=== PATIENT | male | born 1940 | race Caucasian/White ===

== ENCOUNTER → 2016-03-18 | Outpatient (CLI) | payer MEDICARE ==
[2015-05-06 08:00] VITALS: BP 168/88
[~2016-03-18] MED LIST: AMLO10TA2 PO; ASPI325T11 PO; ATOR20TA PO; BENA40TA2 PO; BISO10TA PO; CLOP75TA PO; FLUO10CA7 PO; FLUO40CA9 PO; GEMF600T3 PO; HYDR25TA9 PO; IOHEXOL 180 MG/ML 10 ML VIAL. ONE; LABE200T2 PO; METF10002 PO; METF500T4 PO; SPIR50TA2 PO; methylPREDNISolone ACETATE 40 MG/ML VIAL. ONE; methylPREDNISolone ACETATE 80 MG/ML VIAL. ONE
--- NOTE | 2016-03-19 00:08 | PAIN ---
DATE OF SERVICE: 03/18/2016 DIAGNOSES: Cervical radiculopathy with cervical spinal stenosis and cervical degenerative disk disease. HISTORY OF PRESENT ILLNESS: The patient is a 75-year-old male who returns for followup status post cervical epidural steroid injections x 2. The patient reports good results lasting about one week after the injection and still with about 50% improvement after this, but still significant pain in the base of the neck, bilateral shoulders and upper extremities, more on the left than the right, worse with rotation and motion of the neck to the left as well as forward flexion. The patient reports a constant aching pain, rated as a 5 on a scale of 10. Reports no new motor or sensory deficits or other complaints, but still significant pain, although for the first week or so significant improvement, then ____ off to about 50% improvement at this time. The patient reports no other changes. PHYSICAL EXAMINATION: VITAL SIGNS: The patient's blood pressure is 129/68, pulse 77, respirations 20, temperature 98.1 degrees Fahrenheit. Height is 5 feet 11 inches, weighs 242 pounds. GENERAL: The patient is awake, alert, oriented, appropriate, very pleasant demeanor. HEENT: Head shows normocephalic, atraumatic. Extraocular movements are intact and symmetrical. Oral cavity, mucous membranes are moist and pink. Dentition is intact. NECK: Shows anterior throat supple without palpable lymphadenopathy noted. Swallow reflex is symmetrical. CHEST: Shows normal on inspection. Breath sounds clear to auscultation bilaterally. HEART: Shows S1 and S2 clear. ABDOMEN: Soft, nontender, nondistended. No palpable organomegaly is noted. No rebound or guarding demonstrated. BACK: Shows spine grossly midline. Cervical paraspinous muscle shows some moderate tenderness with palpation in the bilateral cervical paraspinous musculature, mainly in the middle and lower distribution, more firm and tender on the left than the right, but appears symmetrical bilaterally. The patient shows good rotation and motion with some pain reported with left lateral rotation, but without right lateral rotation greater than 45 degrees, also with extension without difficulty. Forward flexion with some moderate pain reported in the left neck and shoulders well. EXTREMITIES: Upper extremities show deep tendon reflexes 1+ in the biceps and triceps tendons. Motor exam is strong with shipping agent strength rated at 5/5 as is biceps and triceps flexion and equal. Peripheral pulses are 2+ radial distribution. No peripheral edema is noted. No clubbing or cyanosis. PLAN: Options were discussed with the patient. Patient's old chart was reviewed as his current medication regimen and updated. Current review of systems updated today as well. We will plan on a third cervical epidural steroid injection today with fluoroscopic guidance. Risks were again discussed including, but not limited to bleeding, infection, possibility of epidural hematoma, subsequent neurologic compromise, dural puncture, headaches, spinal cord and/or nerve damage, side effects of steroid medication and poor results regarding pain control. The patient understands and wishes to proceed. The patient will return to clinic in approximately 2 weeks or as necessary. We also discussed possible physical therapy with traction and massage techniques for the left neck and upper shoulder and traction. He would like to consider this. We will have him contact the office if he decides to proceed with this and make those arrangements. Also given a prescription for hydrocodone at 7.5 mg by his request to take one tablet q. 4-6 hours p.r.n. pain, number dispensed 100 with instructions, side effects to be aware of discussed with the medication as well. DIAGNOSIS: Cervical radiculopathy with cervical spinal stenosis and cervical degenerative disk disease. PROCEDURE: Cervical epidural steroid injection, translaminar approach at the C6-C7 level with fluoroscopic guidance under sterile prep and drape using local anesthetic MEDICATIONS INJECTED: Depo-Medrol 120 mg plus 5 mL of preservative-free normal saline and 2 mL of Isovue contrast. CONDITION AT DISCHARGE: Stable. The patient tolerated the procedure well, had no complications. FLORENTIN BELLE MD DR: MELITA/diaz JOB#: [id number] / [id number]
== END ==
LOC: PNCL 09:23
PROVIDERS: ATTEND Anesthesiology
DX: M50.123 Cervical disc disorder at C6-C7 level with radiculopathy (principal); M48.02 Spinal stenosis, cervical region
CPT/HCPCS: 62321; J1030; J1040

== ENCOUNTER → 2016-07-12 | Outpatient (CLI) | payer MEDICARE ==
[2015-05-06 08:00] VITALS: BP 168/88
[~2016-07-12] MED LIST changes: -IOHEXOL 180 MG/ML 10 ML VIAL. ONE; +METF-620 PO; -METF10002 PO; -methylPREDNISolone ACETATE 40 MG/ML VIAL. ONE; -methylPREDNISolone ACETATE 80 MG/ML VIAL. ONE
--- NOTE | 2016-07-12 11:59 | CARD ---
APPROVED REPORT EXAM: Two-dimensional and M-mode echocardiogram with Doppler and color Doppler. Other Information Quality : Average Rhythm : NSR INDICATION Cardiac Disease: CAD 2D DIMENSIONS RVDd3.8 (2.9-3.5cm)Left Atrium(2D)3.8 (1.6-4.0cm) IVSd1.2 (0.7-1.1cm)Aortic Root(2D)3.1 (2.0-3.7cm) LVDd5.5 (3.9-5.9cm)LVOT Diameter2.1 (1.8-2.4cm) PWd1.2 (0.7-1.1cm)LVDs3.6 (2.5-4.0cm) FS (%) 35.2 %SV94.8 ml LVEF(%)64.0 (>50%) Aortic Valve AoV Peak Mannie.208.2cm/sAoV VTI44.2cm AO Peak GR.17.3mmHgLVOT Peak Mannie.78.6cm/s LVOT VTI 18.32cmAO Mean GR.10mmHg AVIS (VMAX)1.52au9MRK (VTI)1.39cm2 Mitral Valve MV E Yxtigojk46.7cm/sMV DECEL NDVL510mo MV A Cjefunmz08.8cm/sMV E Mean Gr.1mmHg MV ZFY62iyG/A Ratio0.8 MV A Okubuuzk145faVXI (PHT)2.77cm2 TDI E/Lateral E'6.6E/Medial E'8.4 Pulmonary Valve PV Peak Rbnvkjvm33.4cm/sPV Peak Grad.3mmHg RVOT VTI16.9cm Tricuspid Valve TR P. Uvjdeixc448vg/sRAP ZTQMGPVR1mwBo TR Peak Gr.58fyScHIKC08yhMb Pulmonary Vein S1 Ywvbfxva42.8cm/sD2 Xxwtvicw93.4cm/s LEFT VENTRICLE The left ventricle is normal size. There is borderline concentric left ventricular hypertrophy. Left ventricle systolic function is normal. The Ejection Fraction is 60-65%. There is normal LV segmental wall motion. The left ventricular diastolic function and filling is normal for age. There is no ventr icular septal defect visualized. RIGHT VENTRICLE The right ventricle is normal size. The right ventricular systolic function is normal. ATRIA The left atrium size is normal. The right atrium size is normal. The interatrial septum is intact wit h no evidence for an atrial septal defect or patent foramen ovale as noted on 2-D or Doppler imaging. AORTIC VALVE The aortic valve is calcified and displays decreased opening. The aortic valve is trileaflet. Doppler and Color Flow revealed no significant aortic regurgitation. Calculated aortic valve area is 1.4 cm2 with maximum pressure gradient of 17 mmHg and mean pressure gradient of 10 mmHg. Doppler and color-f low analysis revealed mild aortic stenosis. MITRAL VALVE The mitral valve is normal in structure and function. There is no mitral valve stenosis. Doppler and Color Flow revealed mild mitral regurgitation. TRICUSPID VALVE The tricuspid valve is normal in structure and function. Doppler and Color Flow revealed mild tricusp id regurgitation. The PA pressure was estimated at 30 mmHg. There is no tricuspid valve stenosis. PULMONIC VALVE The pulmonic valve is not well visualized. Doppler and Color Flow revealed no pulmonic valvular regur gitation. There is no pulmonic valvular stenosis. GREAT VESSELS The aortic root is normal in size. The ascending aorta is mildly dilated. Normal pulmonary venous huey w (Doppler). The IVC is normal in size and collapses >50% with inspiration. PERICARDIAL EFFUSION There is no evidence of significant pericardial effusion. Critical Notification Critical Value: No <Conclusion> The left ventricle is normal size. Left ventricle systolic function is normal. The Ejection Fraction is 60-65%. There is borderline concentric left ventricular hypertrophy. Calculated aortic valve area is 1.4 cm2 with maximum pressure gradient of 17 mmHg and mean pressure g radient of 10 mmHg. Doppler and color-flow analysis revealed mild aortic stenosis. Doppler and Color Flow revealed no significant aortic regurgitation. Doppler and Color Flow revealed mild mitral regurgitation. Doppler and Color Flow revealed mild tricuspid regurgitation. The PA pressure was estimated at 30 mmHg.
== END | disposition home or self-care (01) ==
LOC: ECHO 09:44
PROVIDERS: ATTEND Internal Medicine Cardiovascular Disease
DX: I08.1 Rheumatic disorders of both mitral and tricuspid valves (principal)
CPT/HCPCS: 93306

== ENCOUNTER → 2016-07-21 | Outpatient (CLI) | payer MEDICARE ==
[2015-05-06 08:00] VITALS: BP 168/88
[~2016-07-21] MED LIST changes: +REGADENOSON 0.4 MG/5 ML DISP.SYRIN. IV ONE
--- NOTE | 2016-07-21 13:18 | RAD ---
APPROVED REPORT Test Type: Pharmacological Stress Nurse/Tech: Betty Henderson R.N. Test Indications: SOB, CAD Cardiac History: HTN, stents,DM Medications: See Electronic Medical Record Medical History: See Electronic Medical Record Resting ECG: SR Resting Heart Rate: 67 bpm Resting Blood Pressure: 150/76mmHg Pretest Chest Pain: No chest pain Nurse/Tech Notes S1S2, lungs CTA Consent: The procedure was explained to the patient in lay terms. Informed consent was witnessed. Vitor eout was entered into [employer]. History and Stress Test performed by RT Lisa Oleary) (N) Pharm. Details Pharmacologic stress testing was performed using 0.4mg per 5ml of regadenoson given intravenously ove r 7-10 seconds. Stress Symptoms dyspnea- resolved by the end of recovery period POST EXERCISE Reason for Termination: Infusion complete Max HR: 85 bpm Max Blood Pressure: 157/77mmHg Blood Pressure response to exercise: Normal blood pressure response during stress. Heart Rate response to exercise: wnl Chest Pain: No. Arrhythmia: No. ST Change: No. INTERPRETATION Stress EKG Conclusion: No evidence of stress induced EKG changes. Imaging Protocol IMAGE PROTOCOL: Rest Tc-99m/stress Tc-99m 1 day Rest: Stress: Viability: Radiopharm.Tc99m ZhhnnddkkOx32p Sestamibi Cnjr8tZp 34.5mCi Duration 15min. 10min. Img Date 07/21/2016 07/21/2016 Inj-Img Ujei94jrg. 60min. Rest Admin Site:IV - Right AntecubitalAdministrator:RT Mamta (R)(N) Stress Admin Site: IV - Right AntecubitalAdministrator: LUISANA Hercules STRESS DATA End Diast. Vol.134.0mlAv. Heart Rate70.0bpm End Syst. Vol.55.0mlCO Index BSA0.0L/min Myocardial Gawt061.0gEject. Ntjqravj16.0% Stress Rates Pk. Fill Rate2.00EDV/secLVtime Pk. Fill 89.77msec Pk. Empty Rate2.97ESV/secLVtime Pk. Errbc966.22msec 03/01 Pk. Fill1.42EDV/sec Stress Scores Regional WT0.00Summed WT6.00 Regional WM0.00Summed WM0.00 LV Perfusion There is a large sized, severe in intensity fixed inferior perfusion defect suggestive of diaphragmat ic attenuation artifact but cannot rule out prior infarct. No ischemia noted. Wall Motion Low normal EF at 55%. No clear inferior wall hypokinesis noted. LV Perf. Quant 17 Seg. SSS10.00 17 Seg. SRS10.00 17 Seg. SDS3.00 Stress Defect Extent (% LAD)5.00Rest Defect Extent (% LAD)8.10Rev. Defect Extent (% LAD)0.00 Stress Defect Extent (% LCX) 41.30Rest Defect Extent (% LCX)26.30Rev. Defect Extent (% LCX)7.50 Stress Defect Extent (% RCA)13.30Rest Defect Extent (% RCA)22.20Rev. Defect Extent (% RCA)0.00 Stress Defect Extent (% JESSICA)17.80Rest Defect Extent (% JESSICA)20.70Rev. Defect Extent (% JESSICA)2.40 Conclusion 1. No evidence of stress induced EKG changes. No evidence of inferior Q-waves on EKG. 2. There is a large sized, severe in intensity fixed inferior perfusion defect suggestive of diaphrag matic attenuation artifact but cannot rule out prior infarct. No ischemia noted. 3. Low normal EF at 55%. No clear inferior wall hypokinesis noted. 4. Low to moderate risk study
== END | disposition home or self-care (01) ==
LOC: NM 09:22
PROVIDERS: ATTEND Internal Medicine Cardiovascular Disease
DX: I25.10 Atherosclerotic heart disease of native coronary artery without angina pectoris (principal); Z86.79 Personal history of other diseases of the circulatory system; I10 Essential (primary) hypertension; Z79.4 Long term (current) use of insulin
CPT/HCPCS: 78452; 93017; 96374; 96375; 96376; A9500; J2785

== ENCOUNTER 2017-06-16 08:54 | Outpatient (CLI) | payer MEDICARE ==
[2017-06-16] MEDS ORDERED: IODIXANOL 320 MG/ML 100 ML VIAL. (09:19)
[2017-06-16] MEDS ORDERED: LIDOCAINE 2% 20 ML VIAL. (09:20)
[2017-06-16 09:44] LABS: HEMATOCRIT 36.9 % (39.0-53.0); HEMOGLOBIN 12.5 g/dL (13.0-17.5); MEAN CORPUSCULAR HEMOGLOBIN 30 pg (25-35); MEAN CORPUSCULAR HGB CONC 34 g/dL (31-37); MEAN CORPUSCULAR VOLUME 88 fL (79-100); PLATELET COUNT 273 x10^3/uL (140-400); RED BLOOD COUNT 4.22 x10^6/uL (4.30-5.70); RED CELL DISTRIBUTION WIDTH 13.5 % (11.5-14.5); WHITE BLOOD COUNT 5.9 x10^3/uL (4.0-11.0)
[2017-06-16 09:57] LABS: INR 1.1 (0.8-1.1); PROTHROMBIN TIME PATIENT 13.3 SEC (11.7-14.0)
[2017-06-16 10:03] LABS: ANION GAP 10 (6-14); BLOOD UREA NITROGEN 21 mg/dL (8-26); CALCIUM 9.5 mg/dL (8.5-10.1); CARBON DIOXIDE 25 mmol/L (21-32); CHLORIDE 102 mmol/L (98-107); CREATININE 1.5 mg/dL (0.7-1.3); GFR 45.7; GLUCOSE 160 mg/dL (70-99); POTASSIUM 4.8 mmol/L (3.5-5.1); SODIUM 137 mmol/L (136-145)
[2017-06-16] MEDS ORDERED: fentaNYL PF VIAL 100 MCG/2 ML VIAL (10:29)
[2017-06-16] MEDS ORDERED: MIDAZOLAM HCL/PF 2 MG/2 ML VIAL. (10:29)
[2017-06-16] MEDS: IODIXANOL 320 MG/ML 100 ML VIAL. IART (11:14)
[2017-06-16] MEDS: LIDOCAINE 2% 20 ML VIAL. IJ (11:14)
[2017-06-16] MEDS: MIDAZOLAM HCL/PF 2 MG/2 ML VIAL. IV (11:15)
[2017-06-16] MEDS: fentaNYL PF VIAL 100 MCG/2 ML VIAL IV (11:15)
[2017-06-16] MEDS ORDERED: IV 1/2 NORMAL SALINE 1,000 ML IV (11:22)
== END 2017-06-16 13:44 | disposition home or self-care (01) ==
LOC: CCL 08:54
DX: I25.110 Atherosclerotic heart disease of native coronary artery with unstable angina pectoris (principal); I10 Essential (primary) hypertension; E11.9 Type 2 diabetes mellitus without complications; E78.5 Hyperlipidemia, unspecified; Z79.84 Long term (current) use of oral hypoglycemic drugs; Z79.82 Long term (current) use of aspirin; Z79.899 Other long term (current) drug therapy
CPT/HCPCS: 36415; 80048; 85027; 85610; 93460; 99152; 99153; C1769; C1771; C1773; C1892; G0269; J1644; J2250; J3010

== ENCOUNTER → 2017-06-19 | Outpatient (CLI) | payer MEDICARE | END | disposition home or self-care (01) | LOC: RAD 14:08 | DX: R06.02 Shortness of breath (principal); I10 Essential (primary) hypertension; E11.9 Type 2 diabetes mellitus without complications; Z87.891 Personal history of nicotine dependence | CPT/HCPCS: 71046 ==

== ENCOUNTER 2018-05-08 08:51 | Day surgery (SDC) | payer MEDICARE ==
[~2018-05-08 08:51] MED LIST changes: -AMLO10TA2 PO; +AMLO10TA8 PO; +ASPI-482 PO; -BENA40TA2 PO; +BENA40TA3 PO; +CETI10TA22 PO; +GABA300C18 PO; -GEMF600T3 PO; +GEMF600T8 PO; +HYDR-2145 PO; -HYDR25TA9 PO; -LABE200T2 PO; +LABE200T4 PO; +LIDOCAINE 2% PF 5 ML VIAL. ONE; -METF-620 PO; +METF10007 PO; +METF500T16 PO; -METF500T4 PO; +PROPOFOL 20 ML IV ONE; -REGADENOSON 0.4 MG/5 ML DISP.SYRIN. IV ONE; +ROCURONIUM 50 MG/5 ML VIAL. ONE; -SPIR50TA2 PO; +SPIR50TA4 PO; +fentaNYL PF VIAL 100 MCG/2 ML VIAL ONE
[2018-05-08] MEDS ORDERED: GLUCAGON,HUMAN RECOMBINANT 1 MG/ML VIAL. ONE (08:55)
[2018-05-08] MEDS ORDERED: IOHEXOL 300 MG/ML 100ML VIAL. ONE (08:55)
[2018-05-08] MEDS ORDERED: BUPIVAC MPF-EPI 0.5%-1:200000 30 ML VIAL. ONE (08:55)
[2018-05-08] MEDS ORDERED: SURGICEL HEMOSTAT 4X8 EACH. ONE (08:56)
[2018-05-08] MEDS ORDERED: IV RINGERS,LACTATED 1000ML 1,000 ML IV SCH (09:04)
[2018-05-08] MEDS ORDERED: HYDROmorphone 2 MG/ML VIAL IV PRN (09:15)
[2018-05-08] MEDS ORDERED: fentaNYL PF VIAL 100 MCG/2 ML VIAL IV PRN (09:15)
[2018-05-08] MEDS ORDERED: MORPHINE SULFATE 2 MG/ML VIAL. IV PRN (09:15)
[2018-05-08] MEDS ORDERED: ONDANSETRON PF 4 MG/2 ML VIAL. IV PRN (09:15)
[2018-05-08 09:32] LABS: BASO # 0.1 x10^3/uL (0.0-0.2); BASO % 1 % (0-3); EOS # 0.1 x10^3/uL (0.0-0.7); EOS % 2 % (0-3); HEMATOCRIT 37.5 % (39.0-53.0); HEMOGLOBIN 12.4 g/dL (13.0-17.5); LYMPH % 16 % (24-48); MEAN CORPUSCULAR HEMOGLOBIN 30 pg (25-35); MEAN CORPUSCULAR HGB CONC 33 g/dL (31-37); MEAN CORPUSCULAR VOLUME 90 fL (79-100); MONO # 0.5 x10^3/uL (0.0-1.1); MONO % 8 % (0-9); NEUT # 4.6 x10^3uL (1.8-7.7); NEUT % 73 % (31-73); PLATELET COUNT 269 x10^3/uL (140-400); RED BLOOD COUNT 4.19 x10^6/uL (4.30-5.70); RED CELL DISTRIBUTION WIDTH 13.5 % (11.5-14.5); WHITE BLOOD COUNT 6.4 x10^3/uL (4.0-11.0)
[2018-05-08 09:49] LABS: CALCIUM 9.5 mg/dL (8.5-10.1); CREATININE 1.8 mg/dL (0.7-1.3); POTASSIUM 5.5 mmol/L (3.5-5.1)
[2018-05-08 09:56] LABS: ALBUMIN 4.1 g/dL (3.4-5.0); TOTAL BILIRUBIN 0.4 mg/dL (0.2-1.0)
[2018-05-08] MEDS ORDERED: DEXAMETHASONE SOD PHOS 20 MG/5 ML VIAL. ONE (10:13)
[2018-05-08] MEDS ORDERED: ONDANSETRON PF 4 MG/2 ML VIAL. ONE (10:13)
[2018-05-08] MEDS ORDERED: PHENYLEPHRINE 10 MG/ML VIAL. ONE (10:29)
[2018-05-08] MEDS ORDERED: GLYCOPYRROLATE 1 MG/5 ML VIAL. ONE (10:34)
--- NOTE | 2018-05-08 11:28 | RAD ---
Intraoperative cholangiogram, 05/08/2018: HISTORY: Cholecystectomy 2 spot films from surgery are presented for review. Contrast has been injected into the cystic duct remnant. 0.9 minutes of fluoroscopy time was utilized. There is good flow contrast into the duodenum at the ampulla. The common duct is of normal caliber. No filling defect is seen in the common duct to suggest a retained calculus. The incompletely opacified intrahepatic ducts are unremarkable. No contrast extravasation is seen. IMPRESSION: No significant abnormality is detected. Electronically signed by: Fred Dobson MD (05/08/2018 11:25 AM) [facility]
[2018-05-08] MEDS: PROCHLORPERAZINE 10 MG/2 ML VIAL. IV PRN ×2 (11:46→12:19)
[2018-05-08] MEDS: fentaNYL PF VIAL 100 MCG/2 ML VIAL IV PRN ×2 (11:51→12:10)
--- NOTE | 2018-05-08 11:54 | DISCH ---
DISCHARGE INSTRUCTIONS Condition on Discharge Condition on Discharge: Stable Activity After Discharge Activity Instructions for Disc: Activity as tolerated, Avoid exertion Lifting Instructions after Dis: No heavy lifting Exercise Instruction after Dis: Progress as tolerated Driving Instructions after Dis: Do not drive (3-4 days) Diet after Discharge Diet after Discharge: Cardiac, Diabetic No Calorie Level Diet Texture: Regular Liquid Texture: Thin Liquid Wound Incision Care Wound/Incision Care: Ice to area for comfort Other wound/incision instructi: sara shower Follow-Up Follow Up With: Jim next week EMMA PRO MD May 08, 2018 11:54
--- NOTE | 2018-05-08 12:00 | PDOC ---
BRIEF OPERATIVE NOTE Date: May 08, 2018 Pre-Op Diagnosis symptomatic cholelithiasis Post-Op Diagnosis same Procedure Performed l/s cholecystectomy with grams Surgeon Jim Airset Caster Lolly CASTELLANOS Anesthesia Type: General Blood Loss 10cc IV Fluid 1000cc Specimens Obtained GB Findings dense omental adhesions on GB, normal grams Complications none Operative Note Wk # [id number] EMMA PRO MD May 08, 2018 12:00
[2018-05-08] MEDS ORDERED: HYDROcodone/APAP 5/325MG 1 TAB TABLET PO ONE (13:00)
--- NOTE | 2018-05-08 13:21 | OP ---
DATE OF SURGERY: 05/08/2018 PREOPERATIVE DIAGNOSIS: Symptomatic cholelithiasis. POSTOPERATIVE DIAGNOSIS: Symptomatic cholelithiasis. PROCEDURE: Laparoscopic cholecystectomy with cholangiogram. SURGEON: Kanu Pro M.D. REAL TIME ANALYST: EMANUEL Price. ANESTHESIA: General endotracheal. ESTIMATED BLOOD LOSS: 10 mL. INTRAVENOUS FLUID: 1 liter. INDICATIONS: The patient is a 77-year-old type 2 diabetic with symptomatic stones, brought for cholecystectomy. OPERATIVE FINDINGS: The liver was smooth and sharp. The gallbladder was encased with omental adhesions. Visual inspection of the remainder of the abdomen failed to reveal obvious abnormalities. DESCRIPTION OF PROCEDURE: The patient brought to the operating suite, given a general endotracheal anesthetic and the abdomen prepped and draped in the usual sterile fashion. A supraumbilical incision was infiltrated with local anesthetic, incised and a 5-mm Visiport used to safely gain access into the abdominal cavity, taking care to avoid injury to abdominal contents. Pneumoperitoneum established. Camera inserted. Inspection carried out, with results as noted above. With the table in reverse Trendelenburg and rolled to the left, the epigastric, midclavicular, and lateral ports were placed under direct vision. The gallbladder was retracted superolaterally and omental adhesions were carefully taken down with blunt and cautery dissection, taking care to avoid injury to the adjacent bowel. The cystic duct and cystic artery were exposed. The duct was clipped on the gallbladder side. Cholangiograms were made. These were normal. In light of this, the catheter was removed. The cystic duct was clipped x 2 and divided, taking care to avoid injury or compromise to the common duct. The cystic artery was clipped and divided and the gallbladder freed from the bed with cautery dissection and placed in an EndoCatch bag. Good hemostasis was present and no evidence of bile leak from the fossa was seen. A 19-Serbian round David drain was brought through the epigastric port out the lateral ports, sewn to the skin with a silk stitch and left in the subhepatic space for postoperative drainage. Table returned to level. Gallbladder delivered through the epigastric incision. Epigastric incision closed with interrupted 0 Vicryl suture. Intra-abdominal pressure decreased to 6 cm of water. No bleeding from the epigastric closure or from the midclavicular port site after its removal or from the drain site. Abdomen decompressed, camera slowly removed. No bleeding seen. Skin incision was closed with subcuticular 4-0 Monocryl. Steri-Strips and sterile dressings applied. The patient awakened from his anesthetic and taken to the recovery room in satisfactory condition. KANU PRO MD DR: GAIL/diaz JOB#: [id number] / [id number]
[2018-05-08 14:00] VITALS: BP 104/62
--- NOTE | 2018-05-10 13:09 | PATHOLOGY ---
[facility] Accession Number: [id number] . 01 Material submitted: . GALLBLADDER . 01 Clinical history: . Symptomatic cholelithiasis . 02 Diagnosis: Gallbladder, laparoscopic cholecystectomy: - Cholelithiasis. - Cholesterolosis, polypoid, focal. - Chronic cholecystitis. (JPM:line manager; 05/08/2018) MBR/05/09/2018 . 02 Comment: There is no evidence of malignancy. (JPM:line manager; 05/08/2018) . 02 Electronically signed: . Reed Guajardo MD, Pathologist NPI- [id number] . 01 Gross description: . The specimen is received in formalin, labeled "Slim, Kinder, gallbladder, is a disrupted, collapsed gallbladder measuring 8.5 x 3.5 x 1.0 cm with abundantly attached yellow lobulated adipose tissue and a glistening, bocanegra-pink serosa. The lumen contains scant yellow-green viscous bile and two irregular, dark brown-black calculi measuring 0.5 x 0.3 x 0.2 cm and 0.7 x 0.5 x 0.4 cm. The mucosa is bocanegra-brown with few polyps. The wall has an average thickness of 0.1 cm. No discrete masses are identified. Turret Lathe Tender tissue is submitted in A1. ([facility]; 05/08/2018) SHS/SHS . 02 Pathologist provided ICD-10: K80.10, K82.4 . 02 CPT . 359645 Specimen Comment: A courtesy copy of this report has been sent to Specimen Comment: [phone], . Specimen Comment: Report sent to / DR WELLS Performed at: [address] [place] [address] [address], [place], [place] [id number] MD Dago Fernandez MD Phone: [phone] Performed at: [address] [id number] MD Reed Guajardo MD Phone: [phone]
[2018-05-30] MEDS ORDERED: CETI10TA22 PO (07:50)
== END 2018-05-08 14:08 | disposition home or self-care (01) ==
LOC: SURG 08:51
PROVIDERS: ATTEND Surgery
DX: K80.10 Calculus of gallbladder with chronic cholecystitis without obstruction (principal); I10 Essential (primary) hypertension; E78.5 Hyperlipidemia, unspecified; E11.9 Type 2 diabetes mellitus without complications; I25.10 Atherosclerotic heart disease of native coronary artery without angina pectoris; E03.9 Hypothyroidism, unspecified; Z79.82 Long term (current) use of aspirin; Z79.899 Other long term (current) drug therapy; Z79.84 Long term (current) use of oral hypoglycemic drugs; Z95.5 Presence of coronary angioplasty implant and graft; Z87.442 Personal history of urinary calculi; Z98.890 Other specified postprocedural states; Z72.89 Other problems related to lifestyle
CPT/HCPCS: 36415; 47563; 74300; 80048; 82040; 82247; 82962; 85025; 88304; A7015; J0696; J0780; J1100; J2001; J2405; J2704; J3010; J3490; J7030; J7120; Q9967; J1610

== ENCOUNTER → 2018-05-30 | Outpatient (CLI) | payer MEDICARE ==
[2018-05-08 14:00] VITALS: BP 104/62
[~2018-05-30] MED LIST changes: -LIDOCAINE 2% PF 5 ML VIAL. ONE; -PROPOFOL 20 ML IV ONE; -ROCURONIUM 50 MG/5 ML VIAL. ONE; -fentaNYL PF VIAL 100 MCG/2 ML VIAL ONE
--- NOTE | 2018-05-30 20:30 | PAIN ---
DATE OF SERVICE: 05/30/2018 DIAGNOSES: Cervical radiculopathy with cervical degenerative disk disease and cervical spinal stenosis. HISTORY OF PRESENT ILLNESS: The patient is a 77-year-old male who returns for followup, last seen in 2017. The patient underwent cervical epidural steroid injection, had very good results, at least 50% improvement. The patient reports his neck has been painful now for about six months and increasing with radiation to bilateral shoulders and upper extremities but without loss of function. The patient reports still significant pain in the bilateral shoulders, upper extremities at times with radiation, but no weakness and especially painful in the upper back. The patient reports no new motor or sensory deficits, no changes, worse with activity, worse with repetitive motions of the upper extremities and having difficulty helping his at home with housework. She reports it is better with leaning against a chair or with the headrest or wall to support his head and that feels better. The patient reports it does not bother him when he is sleeping. He sleeps well at night, worse with being up and around, repetitive motions with the upper extremities, no specific increase in pain with specific right or left lateral rotation, extension or flexion. The patient reports no new changes. No deficits, no weakness in the upper extremities. The patient reports the pain is 10 on a scale of 10 at its average, its worst and at its least. It is constant, aching, sharp, dull, shooting, burning, sometimes cramping pain in the mid upper back as well. The patient reports no other changes. The patient is still taking Plavix, which is prescribed with his nib assembler. PHYSICAL EXAMINATION: VITAL SIGNS: The patient's blood pressure 111/56, pulse 73, respirations 18, temperature 98.2 degrees Fahrenheit, height 5 feet 11 inches, weighs 245 pounds. GENERAL: The patient is awake, alert, oriented, appropriate, very pleasant demeanor. HEENT: Head shows normocephalic, atraumatic. Extraocular movements intact and symmetrical. Oral cavity: Mucous membranes moist and pink. Dentition is intact. NECK: Shows anterior throat supple without palpable lymphadenopathy noted. Swallow reflex symmetrical. CHEST: Shows normal on inspection. Breath sounds are clear to auscultation bilaterally. HEART: Shows S1, S2 clear. No murmurs auscultated. ABDOMEN: Soft, nontender, nondistended. No palpable organomegaly is noted. No rebound or guarding demonstrated. BACK: Shows spine grossly in the midline. Normal appearing thoracic kyphosis and lumbar lordotic curvature. The patient's posterior cervical musculature shows symmetrical on inspection, on palpation shows some moderate tenderness diffusely throughout the upper, middle and lower distribution of paraspinous muscles as well as in the superior medial trapezius, right equal to left essentially. The patient has full rotational motion of cervical spine past 45 degrees right and left, closer to 90 degrees as well as full extension, full forward flexion without exacerbation of pain. EXTREMITIES: The patient's upper extremities show deep tendon reflexes at 2+ in the biceps and triceps tendons. Motor exam is 5/5 with grades 9 12 tutor strength, bicep and tricep flexion and equal. Peripheral pulses are 2+ radial distribution. No peripheral edema is noted bilaterally. Options were discussed with the patient. The patient's old chart was reviewed as his current medication regimen and updated. Current review of systems is updated today as well and we will check with the patient's nib assembler for clearance to hold his Plavix for seven days prior to cervical epidural steroid injection. The patient will try Medrol Dosepak in the meantime. He was cautioned as to his blood sugar levels as the patient is diabetic. The patient would like to try this. The patient was given instruction as well as side effects to be aware of with medication. Will follow up in approximately one week. We will plan on cervical epidural steroid injection pending approval to hold his Plavix by Cardiology. FLORENTIN BELLE MD DR: MELITA/diaz JOB#: [id number] / [id number]
== END | disposition home or self-care (01) ==
LOC: PNCL 07:27
PROVIDERS: ATTEND Anesthesiology
DX: M48.02 Spinal stenosis, cervical region (principal); M50.10 Cervical disc disorder with radiculopathy, unspecified cervical region
CPT/HCPCS: G0463

== ENCOUNTER → 2018-06-07 | Outpatient (CLI) | payer MEDICARE ==
[2018-05-08 14:00] VITALS: BP 104/62
[~2018-06-07] MED LIST changes: +IOHEXOL 180 MG/ML 10 ML VIAL. ONE; +methylPREDNISolone ACETATE 40 MG/ML VIAL. ONE; +methylPREDNISolone ACETATE 80 MG/ML VIAL. ONE
--- NOTE | 2018-06-08 03:18 | PAIN ---
DATE OF SERVICE: 06/07/2018 PROGRESS NOTE FOR PAIN CLINIC: DIAGNOSES: Cervical radiculopathy with cervical spinal stenosis and cervical degenerative disk disease. HISTORY OF PRESENT ILLNESS: The patient is a 77-year-old male who returns for followup status post cervical epidural steroid injections in the past. He has been cleared to hold his Plavix now from his consulting services manager. He has been off of this now for 7 days. The patient returns reporting pain in the base of the neck and upper extremities around the right shoulder, right arm with some numbness and tingling in the right arm as well. The patient reports he also feels dizzy when the pain is at its worse. The patient reports the pain is 10 on a scale 10 at its worst, average and is least over the past week and is a 10 today. The patient reports it is tingling and burning, radiating pain, dull, sharp in the neck and becoming unbearable at times. It is worse with repetitive motions in the right upper extremity, also reaching and lifting items. The patient reports it awakens him from sleep, but only about every 7 hours or so if he lies on his right side. The patient reports no new motor or sensory deficits or other complaints. PHYSICAL EXAMINATION: VITAL SIGNS: The patient's blood pressure 113/61, pulse 69, respirations are 16, temperature is 98.3 degrees Fahrenheit, height is 5 feet 11 inches, weight is 241 pounds. GENERAL: The patient is awake, alert, oriented, appropriate, very pleasant demeanor. HEENT: Head shows normocephalic, atraumatic. Extraocular movements are intact and symmetrical. Oral cavity: Mucous membranes moist and pink. Dentition is intact. NECK: Shows anterior throat supple without palpable lymphadenopathy noted. Swallow reflex symmetrical. CHEST: Shows normal with inspection. Breath sounds clear to auscultation bilaterally. HEART: Shows S1, S2 clear. No murmurs auscultated. ABDOMEN: Soft, nontender, nondistended. No palpable organomegaly is noted. No rebound or guarding demonstrated. BACK: Shows spine grossly in the midline. Normal appearing thoracic kyphosis and cervical lordotic curvature. Cervical paraspinous muscle shows symmetrical on inspection, on palpation shows some moderate tenderness inferiorly in the cervical paraspinous musculature, but more into the right than the left and to the superior medial trapezius on the right than the left. The patient reports good rotational motion of cervical spine, both laterally as well as extension and flexion without significant difficulty. EXTREMITIES: Upper extremities show deep tendon reflexes 2+ in the biceps and triceps tendons. Motor exam is strong with 5/5 camera repair technician strength bilaterally as is bicep and tricep flexion and equal. Peripheral pulses are 2+ radial distribution. No peripheral edema is noted. Options were discussed with the patient. The patient's old chart was reviewed as his current medication regimen updated. Current review of systems updated today as well. We will proceed with cervical epidural steroid injections, the first in this series with fluoroscopic guidance. Risks were again discussed including, but not limited to bleeding, infection, possibility of epidural hematoma and subsequent neurological compromise, dural puncture, headaches, spinal cord and/or nerve damage, side effects of steroid medication and poor results regarding pain control. The patient understands and wished to proceed. The patient is to return to clinic in approximately 2 weeks for followup. He was counseled as to return appointment, activity level and side effects to be aware of. DIAGNOSES: Cervical radiculopathy with cervical degenerative disk disease and cervical spinal stenosis. PROCEDURE: Cervical epidural steroid injection, translaminar approach at C6-C7 level using C-arm fluoroscopic guidance under sterile prep and drape using local anesthetic. MEDICATION INJECTED: A total of 120 mg Depo-Medrol plus 5 mL of preservative-free normal saline and 2 mL of Isovue for contrast. CONDITION AT DISCHARGE: Stable. The patient tolerated the procedure well, had no complications. FLORENTIN BELLE MD DR: MELITA/diaz JOB#: [id number] / [id number]
== END | disposition home or self-care (01) ==
LOC: PNCL 09:34
PROVIDERS: ATTEND Anesthesiology
DX: M50.123 Cervical disc disorder at C6-C7 level with radiculopathy (principal); M48.02 Spinal stenosis, cervical region
CPT/HCPCS: 62321; J1030; J1040; Q9965

== ENCOUNTER → 2018-06-21 | Outpatient (CLI) | payer MEDICARE ==
--- NOTE | 2018-06-21 22:15 | PAIN ---
DATE OF SERVICE: 06/21/2018 DIAGNOSES: Cervical radiculopathy with cervical spinal stenosis and cervical degenerative disk disease. HISTORY OF PRESENT ILLNESS: The patient is a 77-year-old male who returns for followup status post cervical epidural steroid injection x 1. The patient reports about 50% improvement especially for the first few days, was doing very well, now about 50% overall. The patient reports it is still on the base of the neck, right greater than left upper extremity with radiating pain still in the shoulder, triceps and into the deltoid and the forearm to some extent on the right side with some numbness and tingling. Mostly, it is dull and sharp, alternating pain in the base of the neck with some tightness in the neck as well. The patient reports no new motor or sensory deficits, is not awakening him from sleep at night, no new changes. Otherwise, doing fairly well. The patient reports the pain is an 8 on a scale of 10, however, average, worse and at its least and is an 8 today. PHYSICAL EXAMINATION: VITAL SIGNS: The patient's blood pressure 136/69, pulse 74, respirations 16, temperature 98.7 degrees Fahrenheit, weight is 247 pounds. GENERAL: The patient is awake, alert, oriented, appropriate, very pleasant demeanor. HEENT: Shows normocephalic, atraumatic. Extraocular movements are intact and symmetrical. Oral cavity: Mucous membranes moist and pink. Dentition is intact. NECK: Shows anterior throat supple without palpable lymphadenopathy noted. Swallow reflex is symmetrical. CHEST: Shows normal on inspection. Breath sounds are clear to auscultation bilaterally. HEART: Shows S1, S2 clear. No murmurs auscultated. ABDOMEN: Soft, nontender, nondistended. No palpable organomegaly is noted. No rebound or guarding demonstrated. BACK: Shows spine grossly in the midline, normal-appearing cervical lordotic curvature and some slight increase in thoracic kyphotic curvature. Cervical paraspinous musculature shows symmetrical on inspection. With palpation shows some moderate tenderness diffusely bilaterally, but only diffusely without radiation. The patient has good rotational motion of cervical spine, both laterally as well as extension and flexion without significant difficulty. EXTREMITIES: Upper extremities show deep tendon reflexes 2+ in the biceps and triceps tendons are equal. 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 Peripheral pulses are 2+ radial distribution. No peripheral edema is noted bilaterally. Options were discussed with the patient. The patient's old chart was reviewed as was his current medication regimen updated. Current review of systems is updated today as well. We will proceed with a second in this series of cervical epidural steroid injection today with fluoroscopic guidance. Risks were again discussed including, but not limited to bleeding, infection, possibility of epidural hematoma, subsequent neurological compromise, dural puncture, headaches, spinal cord and/or nerve damage, side effects of steroid medication and poor results regarding pain control. The patient understands and wished to proceed. The patient will return to the clinic in approximately 2 weeks for followup, was counseled on return appointment, activity level and side effects to be aware of. DIAGNOSES: Cervical radiculopathy with cervical spinal stenosis and cervical degenerative disk disease. PROCEDURE: Cervical epidural steroid injection, translaminar approach at the C6-C7 level using C-arm fluoroscopic guidance under sterile prep and drape using local anesthetic. MEDICATION INJECTED: A total of 120 mg Depo-Medrol plus 5 mL of preservative-free normal saline and 2 mL of Isovue for contrast. CONDITION AT DISCHARGE: Stable. The patient tolerated the procedure well, had no complications. FLORENTIN BELLE MD DR: MELITA/diaz JOB#: [id number] / [id number]
== END | disposition home or self-care (01) ==
LOC: PNCL 10:04
PROVIDERS: ATTEND Anesthesiology
DX: M50.123 Cervical disc disorder at C6-C7 level with radiculopathy (principal); M48.02 Spinal stenosis, cervical region
CPT/HCPCS: 62321; J1030; J1040; Q9965

== ENCOUNTER → 2018-07-12 | Outpatient (CLI) | payer MEDICARE ==
--- NOTE | 2018-07-12 22:17 | PAIN ---
DATE OF SERVICE: 07/12/2018 DIAGNOSIS: Cervical radiculopathy with cervical spinal stenosis and cervical degenerative disk disease. HISTORY OF PRESENT ILLNESS: The patient is a 77-year-old male who returns for followup status post cervical epidural steroid injection x 2. He reports overall about 30% improvement in the base of neck and the bilateral upper extremities. The patient reports still significant pain in the neck and shoulders radiating to bilateral upper extremities, rated at 9 on a scale of 10 at its worst in the past week, 8 on average, 8 at its least and is 8 today. The patient reports it does not awaken him from sleep at night, that he is sleeping well; more worse with repetitive motions of the upper extremities, reaching over his head with his arms, carrying items even, driving the car. The patient reports it becomes constant, aching and dull and sometimes sharp, radiating to bilateral upper extremities, again improved with the injections, but only about 30% overall. The patient reports no new motor or sensory deficits. PHYSICAL EXAMINATION: VITAL SIGNS: The patient's blood pressure is 141/71, pulse is 90, respirations 18, temperature 99.0 degrees Fahrenheit, height is 5 feet 11 inches, weighs 246 pounds. GENERAL: The patient is awake, alert, oriented, appropriate, very pleasant demeanor. HEENT: Head is normocephalic, atraumatic. Extraocular movements are intact and symmetrical. Oral cavity: Mucous membranes moist and pink. Dentition is intact. NECK: Shows anterior throat supple without palpable lymphadenopathy noted. Swallow reflex is symmetrical. CHEST: Shows normal on inspection. Breath sounds clear to auscultation bilaterally. HEART: Shows S1, S2 clear. No murmurs auscultated. ABDOMEN: Soft, obese, nontender, nondistended. No palpable organomegaly is noted. No rebound or guarding demonstrated. BACK: Shows spine grossly in the midline. Normal-appearing cervical lordotic curvature, thoracic kyphotic curvature slightly exaggerated and some mild flattening of lumbar lordotic curvature. Cervical paraspinous muscle shows symmetrical on inspection; on palpation shows some moderate tenderness diffusely bilaterally, but only diffusely without significant radiation. The patient has good rotational motion of cervical spine, both extension as well as right and left lateral rotation past 45 degrees without significant pain reported. EXTREMITIES: Upper extremities show deep tendon reflexes 2+ in the biceps, triceps tendons. Motor exam is strong with windows infrastructure engineer strength rated at 5/5 and equal as is bicep and tricep flexion and symmetrical. Peripheral pulses are 2+ radial distribution. No peripheral edema is noted bilaterally. Options were discussed with the patient. The patient's old chart was reviewed as was his current medication regimen updated. Current review of systems updated today as well. We will proceed with a third in the series of cervical epidural steroid injection today with fluoroscopic guidance. Risks were again discussed including, but not limited to bleeding, infection, possibility of epidural hematoma, subsequent neurological compromise, dural puncture, headaches, spinal cord and/or nerve damage, side effects of steroid medication and poor results regarding pain control. The patient understands and wished to proceed. The patient will return to clinic in approximately 2 weeks for followup, was counseled as to return appointment, activity level and side effects to be aware of. The patient is also planning to travel later this summer and will be gone for about 3 months out of town and we did discuss pain medication to take with him and we decided on tramadol 50 mg. He was given instruction as well as side effects to be aware of with the medication. DIAGNOSIS: Cervical radiculopathy with cervical spinal stenosis and cervical degenerative disk disease. PROCEDURE: Cervical epidural steroid injection, translaminar approach C6-C7 level using C-arm fluoroscopic guidance under sterile prep and drape using local anesthetic. MEDICATION INJECTED: A total of 120 mg Depo-Medrol plus 5 mL of preservative-free normal saline and 2 mL of contrast. CONDITION AT DISCHARGE: Stable. The patient tolerated the procedure well, had no complications. FLORENTIN BELLE MD DR: MELITA/diaz JOB#: [id number] / [id number]
== END | disposition home or self-care (01) ==
LOC: PNCL 09:39
PROVIDERS: ATTEND Anesthesiology
DX: M50.123 Cervical disc disorder at C6-C7 level with radiculopathy (principal); M48.02 Spinal stenosis, cervical region
CPT/HCPCS: 62321; J1030; J1040; Q9965

== ENCOUNTER 2018-07-21 19:45 | Emergency (ER) | payer MEDICARE ==
[~2018-07-21] VITALS: Ht 180.3 cm; Wt 108.9 kg
[~2018-07-21 19:45] MED LIST changes: -IOHEXOL 180 MG/ML 10 ML VIAL. ONE; -methylPREDNISolone ACETATE 40 MG/ML VIAL. ONE; -methylPREDNISolone ACETATE 80 MG/ML VIAL. ONE
[2018-07-21 20:00] VITALS: BP 129/63
[2018-07-21] MEDS ORDERED: HYDROcodone/APAP 5/325MG 1 TAB TABLET PO ONE (20:30)
--- NOTE | 2018-07-21 20:37 | RAD ---
3 view study of the left foot Clinical indications: Left foot pain. FINDINGS: No acute fracture or dislocation or lytic process is evident. No periosteal reaction is seen. Plantar and posterior spurs of the calcaneus are seen. 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 IMPRESSION: No acute fracture. Electronically signed by: Sigifredo Arizmendi MD (07/21/2018 8:34 PM) [facility]
--- NOTE | 2018-07-21 20:44 | PHYS DOC ---
Past Medical History Past Medical History: Diabetes-Type II, Hypertension, Hypothyroid Additional Past Medical Histor: Hyperlipidmia, (SANTIAGO GUEVARA APRN) Past Surgical History: Cholecystectomy, Knee Replacement Additional Past Surgical Histo: Cardiac stents x's 2, Left total knee (SANTIAGO GUEVARA APRN) Additional Information: nonsmoker Alcohol Use: Heavy Drug Use: None (SANTIAGO GUEVARA APRN) Adult General Chief Complaint Chief Complaint: FOOT INJURY PAIN [facility] HPI Patient is a 77 year old male who presents with left heel pain has been ongoing for weeks. The patient states that it is become more painful especially to walk. Rates his pain 8 out of 10 and throbbing. His been taking Ultram at home which is helping some. (SANTIAGO GUEVARA APRN) Review of Systems Review of Systems Constitutional: Denies fever or chills [] Eyes: Denies change in visual acuity, redness, or eye pain [] HENT: Denies nasal congestion or sore throat [] Respiratory: Denies cough or shortness of breath [] Cardiovascular: No additional information not addressed in HPI [] GI: Denies abdominal pain, nausea, vomiting, bloody stools or diarrhea [] : Denies dysuria or hematuria [] Musculoskeletal: Denies back pain or joint pain with exception of L heel. Integument: Denies rash or skin lesions [] Neurologic: Denies headache, focal weakness or sensory changes [] Endocrine: Denies polyuria or polydipsia [] Complete systems were reviewed and found to be within normal limits, except as documented in this note. (SANTIAGO GUEVARA APRN) Current Medications Current Medications Current Medications Medications (Trade) Dose Ordered Sig/Oneil Start Time Stop Time Status Last Admin Dose Admin Acetaminophen/ Hydrocodone Bitart (Lortab 5/325) 1 tab 1X ONCE 07/21/18 20:30 07/21/18 20:31 DC 07/21/18 20:29 1 TAB (SANTIAGO GONZALES DO) Allergies Allergies Allergies Coded Allergies Type Severity Reaction Last Updated Verified No Known Drug Allergies 05/05/15 No (SANTIAGO GONZALES DO) Physical Exam Physical Exam Constitutional: Well developed, well nourished, no acute distress, non-toxic appearance. [] HENT: Normocephalic, atraumatic, bilateral external ears normal, oropharynx moist, no oral exudates, nose normal. [] Eyes: PERRLA, EOMI, conjunctiva normal, no discharge. [] Neck: Normal range of motion, no tenderness, supple, no stridor. [] Cardiovascular:Heart rate regular rhythm, no murmur [] Lungs & Thorax: Bilateral breath sounds clear to auscultation [] Abdomen: Bowel sounds normal, soft, no tenderness, no masses, no pulsatile masses. [] Skin: Warm, dry, no erythema, no rash. [] Back: No tenderness, no CVA tenderness. [] Extremities: No tenderness with exception of L heel, no cyanosis, no clubbing, ROM intact, no edema. [] Neurologic: Alert and oriented X 3, normal motor function, normal sensory function, no focal deficits noted. [] Psychologic: Affect normal, judgement normal, mood normal. [] (SANTIAGO GUEVARA APRN) Current Patient Data Vital Signs Vital Signs Date Time Temp Pulse Resp B/P (MAP) Pulse Ox O2 Delivery O2 Flow Rate FiO2 07/21/18 20:29 18 96 Room Air 07/21/18 20:00 97.6 91 129/63 (85) 97.6 (SANTIAGO GONZALES DO) EKG EKG [] (SANTIAGO GUEVARA APRN) Radiology/Procedures Radiology/Procedures [] PATIENT: JAYME MARIA ACCOUNT: [id number] : 1940 LOCATION: ER AGE: 77 SEX: M EXAM STATUS: REG ER ORD. PHYSICIAN: SANTIAGO GUEVARA APRN REASON: pain PROCEDURE: FOOT LEFT 3V 3 view study of the left foot Clinical indications: Left foot pain. FINDINGS: No acute fracture or dislocation or lytic process is evident. No periosteal reaction is seen. Plantar and posterior spurs of the calcaneus are seen. 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 IMPRESSION: No acute fracture. Electronically signed by: Sigifredo Arizmendi MD (07/21/2018 8:34 PM) [facility] (SANTIAGO GUEVARA APRN) Course & Med Decision Making Course & Med Decision Making Pertinent Labs and Imaging studies reviewed. (See chart for details) Will get xray and give pain medication. Xray shows spur. Will d/c to follow up with orthopedics. (SANTIAGO GUEVARA APRN) Dragon Disclaimer Dragon Disclaimer This electronic medical record was generated, in whole or in part, using a voice recognition dictation system. (SANTIAGO GUEVARA APRN) Departure Departure Impression: Primary Impression: Calcaneal spur Disposition: HOME, SELF-CARE Condition: STABLE Referrals: FATEMEH WELLS MD (PCP) LOUIE DWYER MD Patient Instructions: Heel Spur Additional Instructions: Follow up with orthopedics. Continue taking Tramadol at home for pain. Return to ER if symptoms worsen. Attending Signature Attending Signature I have reviewed the PA/VETERINARY SURGEON's note and plan of care. I was available for consultation as needed during the patient's visit in the emergency department. I agree with the clinical impression, plan, and disposition. (SANTIAGO GONZALES DO) Problem Qualifiers Primary Impression: Calcaneal spur Laterality: left Qualified Codes: M77.32 - Calcaneal spur, left foot SANTIAGO GUEVARA APRN July 21, 2018 20:43 SANTIAGO GONZALES DO July 24, 2018 05:12
== END 2018-07-21 21:02 | disposition home or self-care (01) ==
LOC: ER 19:45
DX: M77.32 Calcaneal spur, left foot (principal); I10 Essential (primary) hypertension; E03.9 Hypothyroidism, unspecified; E11.9 Type 2 diabetes mellitus without complications; E78.5 Hyperlipidemia, unspecified; F10.20 Alcohol dependence, uncomplicated; Y90.9 Presence of alcohol in blood, level not specified; Z95.5 Presence of coronary angioplasty implant and graft
CPT/HCPCS: 73630; 99284

== ENCOUNTER → 2018-11-22 | Outpatient (CLI) | payer MEDICARE ==
--- NOTE | 2018-11-23 13:54 | CARD ---
MR#: [id number] Date of Study: 11/22/2018 Ordering Physician: AMADO LOYOLA, Referring Physician: AMADO LOYOLA, Tech: Sameera Griffiths APPROVED REPORT EXAM: Two-dimensional and M-mode echocardiogram with Doppler and color Doppler. Other Information Quality : AverageHR: 63bpm INDICATION Cardiac Disease: CAD Surgery/Intervention Two Stents 2016 RISK FACTORS Hypertension Diabetes 2D DIMENSIONS RVDd3.1 (2.9-3.5cm)Left Atrium(2D)3.8 (1.6-4.0cm) IVSd1.3 (0.7-1.1cm)Aortic Root(2D)3.5 (2.0-3.7cm) LVDd5.2 (3.9-5.9cm)LVOT Diameter2.2 (1.8-2.4cm) PWd1.3 (0.7-1.1cm)LVDs3.1 (2.5-4.0cm) FS (%) 40.6 %SV92.3 ml LVEF(%)70.9 (>50%) Aortic Valve AoV Peak Mannie.225.0cm/sAoV VTI48.8cm AO Peak GR.20.3mmHgLVOT Peak Mannie.86.8cm/s LVOT VTI 19.80cmAO Mean GR.11mmHg AVIS (VMAX)1.35zh6COB (VTI)1.53cm2 Mitral Valve MV E Rymyklox65.8cm/sMV DECEL JKHE657gc MV A Mycdacuv85.5cm/sMV QSX85fs E/A Ratio0.8MVA (PHT)2.21cm2 TDI E/Lateral E'6.0E/Medial E'8.4 Pulmonary Valve PV Peak Nprtmlmk11.0cm/sPV Peak Grad.4mmHg Tricuspid Valve TR P. Ncvlwnmo658fz/sRAP LGPDLEUD9nbWx TR Peak Gr.03nmNoNRZM05rqUn Pulmonary Vein S1 Olimcwwo99.2cm/sD2 Xiaevbkp96.1cm/s PVa rxrvemzp913feed LEFT VENTRICLE The left ventricle is normal size. There is moderate concentric left ventricular hypertrophy. The lef t ventricular systolic function is normal. The Ejection Fraction is 60%. There is normal LV segmental wall motion. Transmitral Doppler flow pattern is Grade I-abnormal relaxation pattern. RIGHT VENTRICLE The right ventricle is normal size. There is normal right ventricular wall thickness. The right ventr icular systolic function is normal. ATRIA The left atrium is borderline dilated. The right atrium is mildly dilated. The interatrial septum is intact with no evidence for an atrial septal defect or patent foramen ovale as noted on 2-D or Dopple r imaging. AORTIC VALVE The aortic valve is thickened but opens well. Doppler and Color Flow revealed no significant aortic r egurgitation. Mild aortic valvular stenosis. MITRAL VALVE The mitral valve is normal in structure and function. There is no evidence of mitral valve prolapse. There is no mitral valve stenosis. Doppler and Color-flow revealed trace mitral regurgitation. TRICUSPID VALVE The tricuspid valve is normal in structure and function. Doppler and Color Flow revealed trace tricus pid regurgitation with an estimated PAP of 27 mmHg. There is no tricuspid valve prolapse or vegetatio n. There is no tricuspid valve stenosis. PULMONIC VALVE The pulmonic valve is not well visualized. Doppler and Color Flow revealed trace pulmonic valvular re gurgitation. GREAT VESSELS The aortic root is normal in size. The IVC is normal in size and collapses >50% with inspiration. PERICARDIAL EFFUSION There is no evidence of significant pericardial effusion. Critical Notification Critical Value: No <Conclusion> The left ventricular systolic function is normal. The Ejection Fraction is 60%. Transmitral Doppler flow pattern is Grade I-abnormal relaxation pattern. Mild aortic stenosis. Trace mitral regurgitation. Trace tricuspid regurgitation with an estimated PAP of 27 mmHg. There is no evidence of significant pericardial effusion. Signed by : Amado Loyola, Electronically Approved : 11/22/2018 11:29:43
== END | disposition home or self-care (01) ==
LOC: ECHO 08:51
PROVIDERS: ATTEND Internal Medicine Cardiovascular Disease
DX: I35.0 Nonrheumatic aortic (valve) stenosis (principal); I25.10 Atherosclerotic heart disease of native coronary artery without angina pectoris; E11.9 Type 2 diabetes mellitus without complications; I10 Essential (primary) hypertension
CPT/HCPCS: 93306

== ENCOUNTER → 2018-11-22 | Outpatient (CLI) | payer MEDICARE ==
--- NOTE | 2018-11-22 11:57 | RAD ---
MRI Cervical Spine Without Contrast History: Cervicalgia Technique: Multiplanar, multi sequential noncontrast MR imaging was performed of the cervical spine. Comparison: None Findings: There is some motion degradation. Cervical cord caliber is within normal limits without defined or expansile signal abnormality. There is small focus of likely cystic change of the anterior dens near the atlantoaxial articulation measured about 0.4 cm in size. Cervical vertebral body stature is overall maintained. There is negligible anterior spondylolisthesis C3-4. There is mild degenerative disc disease C6-7, mild disc desiccation of more superior levels. There is no significant marrow edema. C2-C3: Spinal canal and neural foramina are adequate. C3-C4: There is broad protrusion more eccentric to the left lateral recess up to about 2 to 3 mm AP, indentation upon the ventral thecal sac greater in the left lateral recess, light contact of the left ventral cord. Central canal is minimally narrowed about 9 mm with a somewhat greater degree of left lateral recess stenosis. There is fairly severe right facet degenerative change, to lesser degree on the left. There is left uncovertebral degenerative change. Right neural foramen is adequate, moderate to severe narrowing of the left neural foramen. C4-C5: There is a shallow posterior central protrusion 1 to 2 mm AP. Central canal is minimally narrowed about 9 to 10 mm. There is severe right facet hypertrophic change, to lesser degree on the left. There is minimal narrowing of the right neural foramen, left neural foramen not significantly narrowed. C5-C6: There is very shallow posterior protrusion about 1 to 2 mm AP. There is buckling of the ligamentum flavum. Central canal is borderline about 10 mm. There is bilateral facet hypertrophic change greater on the right. There is minimal left uncovertebral degenerative change. There is minimal posterior narrowing of the left neural foramen, right neural foramen overall adequate. C6-C7: There is broad posterior protrusion up to about 2 mm AP with indentation upon the ventral thecal sac greater in the right lateral recess. There is buckling of the ligamentum flavum. Central canal is narrowed to about 8 to 9 mm with a somewhat greater degree of right lateral recess stenosis, contact of the right ventral cord. There is facet degenerative change bilaterally. There is probable mild neural foramina compromise bilaterally. C7-T1: There is a very shallow 1 mm AP protrusion, central canal adequate about 12 mm. There is facet degenerative change. Neural foramina are adequate. Impression: 1. There is mild spinal stenosis C3-4, C4-5, C6-7 as described at which there are protrusions, somewhat greater degree of left lateral recess stenosis at C3-4 and on the right at C6-7. 2. There is multilevel facet degenerative change contributing to neural foramina compromise greatest on the left at C3-C4. Electronically signed by: King Asif MD (11/22/2018 11:54 AM) [id number]
== END | disposition home or self-care (01) ==
LOC: MRI 08:55
PROVIDERS: ATTEND Family Medicine
DX: M48.02 Spinal stenosis, cervical region (principal); M43.12 Spondylolisthesis, cervical region; M50.323 Other cervical disc degeneration at C6-C7 level
CPT/HCPCS: 72141

== ENCOUNTER → 2019-01-09 | Outpatient (CLI) | payer MEDICARE ==
--- NOTE | 2019-01-09 09:52 | KCIC ---
MRI Lumbar Spine without contrast History: Low back pain into left leg, tingling Technique: Multiplanar, multi sequential noncontrast MR imaging was performed of the lumbar spine. Comparison: None Findings: Lumbar vertebral body stature is maintained. There is straightening of the lumbar spine. There is very mild grade 1 anterior spondylolisthesis at L4-5 and L3-4, very minimal posterior subluxation L5 relative to S1. There is somewhat diffuse heterogeneous T1 and T2 signal of the L4 vertebral body without associated significant STIR hyperintense signal. There is a small 0.6 cm focus of decreased T2 and T1 signal of the inferior left L3 vertebral body, isointense on STIR sequence. Conus terminates at L1-2. There is moderate to severe degenerative disc disease at L5-S1 and to a somewhat lesser degree at L4-5, minimally at L2-3 and L3-4. L1-L2: Spinal canal and the neural foramina are adequate. L2-L3: There is mild buckling of the ligamentum flavum and facet hypertrophic change. Spinal canal and neural foramina are adequate. There is right posterior lateral annular tear. L3-L4: There is mild prominence of posterior epidural fat and buckling of the ligamentum flavum. Spinal canal and neural foramina are adequate. There is a small synovial cyst in the plane of the right ligamentum flavum on the right about 0.2 cm without impingement upon the thecal sac. L4-L5: There is moderate facet degenerative change and mild to moderate buckling of the ligamentum flavum. There is prominence of posterior epidural fat centrally. There is what likely represents a complex synovial cyst in the plane of the right ligamentum flavum about 0.3 cm without additional impingement upon the thecal sac. There is mild partial uncovering the posterior aspect of the disc due to spondylolisthesis with minimal superimposed bulge. There is posterior annular tear. There is fairly severe lateral recess stenosis bilaterally, moderate to severe narrowing of the central canal with some preserved subarachnoid space. There is contact of the descending L5 nerve roots in the lateral recesses bilaterally. There is mild narrowing of the left neural foramen, disc osteophyte complex near the undersurface exiting left L4 nerve root extending to proximal extraforaminal region. Right neural foramen is adequate. L5-S1: There is posterior protrusion greatest centrally, likely partially calcified, measures about 2-3 mm AP. There is contact of the ventral surface descending right S1 nerve root without displacement. Spinal canal is not significantly narrowed. Neural foramina are overall adequate. There is mild right facet degenerative change. Disc osteophyte complex is near the extraforaminal right L5 nerve root without significant displacement. Impression: 1. There is moderate to severe spinal stenosis at L4-5, lateral recess stenosis bilaterally with degree of contact of the descending L5 nerve roots, some preserved subarachnoid space more centrally. Partially calcified protrusion L5-S1 is near the descending right S1 nerve root without displacement or spinal stenosis. 2. There is mild abnormal alignment as stated, multilevel facet degenerative change. 3. There is degenerative disc disease greatest at L5-S1 and to a lesser degree L4-5 and L3-4. 4. There is nonspecific fairly diffuse heterogeneous signal of the L4 vertebral body, also small focus of decreased signal of the L3 vertebral body. However there is not associated significant STIR hyperintense signal to suggest significant edema as would be more commonly associated with more aggressive marrow replacing lesions/metastasis disease. Findings may be due to atypical hemangiomas or foci of nonspecific sclerosis. If there is point tenderness present or clinical suspicion for possible metastatic disease, bone scan to evaluate for radiotracer activity and to assess for other lesions could be beneficial. Electronically signed by: King sAif MD (01/09/2019 9:49 AM) [facility]
== END | disposition home or self-care (01) ==
LOC: KCIC MRI 08:38
PROVIDERS: ATTEND Orthopaedic Surgery
DX: M51.37 Other intervertebral disc degeneration, lumbosacral region (principal); M51.27 Other intervertebral disc displacement, lumbosacral region; M47.817 Spondylosis without myelopathy or radiculopathy, lumbosacral region; M43.16 Spondylolisthesis, lumbar region; M48.061 Spinal stenosis, lumbar region without neurogenic claudication; M25.78 Osteophyte, vertebrae; M53.2X7 Spinal instabilities, lumbosacral region; M71.38 Other bursal cyst, other site
CPT/HCPCS: 72148

== ENCOUNTER → 2019-02-14 | Outpatient (CLI) | payer MEDICARE ==
[~2019-02-14] MED LIST changes: +FLUO10CA14 PO; -FLUO10CA7 PO; +IOHEXOL 180 MG/ML 10 ML VIAL. ONE; +MELO15TA23 PO; +MELO7.5T29 PO; +methylPREDNISolone ACETATE 40 MG/ML VIAL. ONE; +methylPREDNISolone ACETATE 80 MG/ML VIAL. ONE
--- NOTE | 2019-02-14 12:12 | PAIN ---
DATE OF SERVICE: 02/14/2019 PROGRESS NOTE FOR PAIN CLINIC DIAGNOSES: 1. Cervical radiculopathy with cervical spinal stenosis and cervical degenerative disk disease. 2. Lumbar radiculopathy with lumbar degenerative disk disease and lumbar spinal stenosis. HISTORY OF PRESENT ILLNESS: The patient is a 78-year-old male who returns for followup status post cervical epidural steroid injections, last seen 07/12/2018. The patient returns now reporting doing significantly better about 60-70% improvement with the neck and upper extremities; however, his chief complaint is low back and left lower extremity pain, which has been increasing for about the past 3 months. The patient reports it is a 9 on a scale of 10 at its worst, least and average and is 9 on a scale of 10 today. The patient reports it is sharp, shooting, tingling, becoming more constant in the low back, posterior gluteus, lateral thigh, lateral anterior thigh, medial thigh and lateral calf. The patient did have a new MRI scan of the lumbar spine dated 01/09/2019 showing significant stenosis at L4-L5 level with contact to the descending L5 nerve roots, partially calcified protrusion at L5-S1 to descending right S1 nerve root but without displacement. The patient reports his pain is tingling and sharp across the low back and shooting and dull and aching into the leg as well, becoming more constant, worse with walking, standing, changing positions, better with sitting or lying down, does not awaken him from sleep at night. The patient reports no new motor or sensory deficits, no new bowel or bladder incontinence or other complaints. PHYSICAL EXAMINATION: VITAL SIGNS: The patient's blood pressure 133/71, pulse 78, respirations are 18, temperature is 95.0 degrees Fahrenheit, height is 5 feet 11 inches and weight is 243 pounds. GENERAL: The patient is awake, alert, oriented, appropriate, very pleasant demeanor. HEENT: Shows normocephalic, atraumatic. Extraocular movements are intact and symmetrical. Oral cavity: Mucous membranes moist and pink. Dentition is intact. NECK: Shows anterior throat supple without palpable lymphadenopathy noted. Swallow reflex symmetrical. CHEST: Shows normal on inspection. Breath sounds are clear to auscultation bilaterally. HEART: Shows S1, S2 clear. No murmurs auscultated. ABDOMEN: Soft, obese, nontender, nondistended. BACK: Shows spine grossly in the midline. Some minor flattening of cervical lordotic curvature. Thoracic kyphotic curvature slightly increased and some minor flattening of lumbar lordotic curvature. Cervical paraspinous muscle shows symmetrical on inspection, with palpation shows some mild tenderness, but only diffusely without radiation. The patient has good rotational motion of cervical spine, both laterally as well as extension and flexion without difficulty. Lumbar spine shows midline with paraspinous musculature showing as symmetrical, with palpation on paraspinous muscle shows moderately tender in the inferior aspect of the lumbar paraspinous muscles, but only diffusely without radiation. The patient has good rotational motion of lumbar spine, both laterally greater than 10 degrees right and left as well as extension greater than 10 degrees, forward flexion 45 degrees without significant pain reported. No tenderness over the spinous processes, sacrum or sacroiliac regions. EXTREMITIES: Lower extremities show deep tendon reflexes 1+ in the patellar and tendo calcaneus tendons are equal. Motor exam is strong with 5/5 dorsiflexion, extension, quadriceps and hamstring flexion and symmetrical. Peripheral pulses are 1+ posterior tibia. No peripheral edema is noted bilaterally. The patient has been off of his Plavix now for 7 days prior to today's appointment. Options were discussed with the patient including conservative medical management, physical therapy, interventional techniques. He would like to pursue interventional techniques. We discussed an MRI scan with the patient as well. Options were discussed. The patient's old chart was reviewed as his current medication regimen updated. Current review of systems updated today as well. We will proceed with a lumbar epidural steroid injection today with fluoroscopic guidance. Risks were again discussed including, but not limited to bleeding, infection, possibility of epidural hematoma, subsequent neurological compromise, dural puncture, headaches, spinal cord and/or nerve damage, side effects of steroid medication and poor results regarding pain control. The patient understands and wished to proceed. The patient will return to the clinic in approximately 2 weeks for followup. He was counseled on return appointment, activity level and side effects to be aware of. DIAGNOSES: Lumbar radiculopathy with lumbar degenerative disk disease and lumbar spinal stenosis. PROCEDURE: Lumbar epidural steroid injection, translaminar approach L4-L5 level using C-arm fluoroscopic guidance under sterile prep and drape using local anesthetic. MEDICATION INJECTED: A total of 120 mg Depo-Medrol plus 10 mL of preservative-free normal saline and 2 mL of contrast. CONDITION AT DISCHARGE: Stable. The patient tolerated procedure well, had no complications. FLORENTIN BELLE MD DR: MELITA/diaz JOB#: [id number] / [id number]
== END ==
LOC: PNCL 09:14
PROVIDERS: ATTEND Anesthesiology
DX: M51.16 Intervertebral disc disorders with radiculopathy, lumbar region (principal); M48.061 Spinal stenosis, lumbar region without neurogenic claudication; M50.10 Cervical disc disorder with radiculopathy, unspecified cervical region; M48.02 Spinal stenosis, cervical region
CPT/HCPCS: 62323; J1030; J1040; Q9965

== ENCOUNTER → 2019-04-02 | Outpatient (CLI) | payer MEDICARE ==
[~2019-04-02] MED LIST changes: -CETI10TA22 PO; +CETI10TA24 PO
--- NOTE | 2019-04-02 09:58 | PAIN ---
DATE OF SERVICE: 04/02/2019 PROGRESS NOTE FOR PAIN CLINIC DIAGNOSES: 1. Cervical radiculopathy with cervical spinal stenosis and cervical degenerative disk disease. 2. Lumbar radiculopathy with lumbar degenerative disk disease and lumbar spinal stenosis. HISTORY OF PRESENT ILLNESS: The patient is a 78-year-old male who returns for followup status post lumbar epidural steroid injection x 1. The patient reports he did very well for about a month with about a 75-80% improvement. The patient reports he was increasing his activity at home, doing greater distance walking, doing household activities, working in his yard as well as around the house with much greater ease and comfort. The patient reports the pain began to return after about a month to 6 weeks. It was aching and stabbing in the low back radiating to posterior hip on the left side in the gluteus, left lateral thigh, lateral anterior thigh, medial thigh, into the calf. The patient reports it is aching and stabbing, now cramping, becoming more constant, worse with walking, standing, changing positions, better with sitting or lying down. The patient reports the first month, he felt very well, but the pain is beginning to awaken him from sleep about every 5-6 hours once again. The patient reports no new motor or sensory deficits, no new bowel or bladder incontinence or other complaints. PHYSICAL EXAMINATION: VITAL SIGNS: The patient's blood pressure is 132/73, pulse 76, respirations are 18, temperature 98.2 degrees Fahrenheit, height is 5 feet 11 inches, weight is 250 pounds. GENERAL: The patient is awake, alert, oriented, appropriate, very pleasant demeanor. HEENT: Head shows normocephalic, atraumatic. Extraocular movements are intact and symmetrical. Oral cavity: Mucous membranes moist and pink. Dentition is intact. NECK: Shows anterior throat supple without palpable lymphadenopathy noted. Swallow reflex symmetrical. CHEST: Shows normal on inspection. Breath sounds are clear bilaterally. HEART: Shows S1, S2 clear. No murmurs auscultated. ABDOMEN: Soft, nontender, nondistended. No palpable organomegaly is noted. No rebound or guarding demonstrated. BACK: Shows spine grossly in the midline. Normal appearing thoracic kyphosis and minor flattening of lumbar lordotic curvature and some normal cervical lordosis. Lumbar paraspinous muscle shows symmetrical on inspection, on palpation shows some moderate tenderness diffusely bilaterally going diffusely without significant radiation. The patient shows good rotational motion of lumbar spine, both laterally as well as extension and flexion without significant difficulty. No tenderness over the sacrum or sacroiliac regions. EXTREMITIES: Lower extremities show deep tendon reflexes 1+ in the patellar and tendo-calcaneus tendons. Motor exam is 5/5 with dorsiflexion, extension, quadriceps and hamstring flexion and symmetrical. Peripheral pulses are 1+ posterior tibia. No peripheral edema is noted. Options were discussed with the patient. The patient's old chart was reviewed as his current medication regimen updated. Current review of systems updated today as well. We will proceed with a second in a series of lumbar epidural steroid injection today with fluoroscopic guidance. Risks were again discussed including, but not limited to bleeding, infection, possibility of epidural hematoma, subsequent neurological compromise, dural puncture, headaches, spinal cord and/or nerve damage, side effects of steroid medication and poor results regarding pain control. The patient understands and wished to proceed. The patient will return to clinic in approximately 2 weeks for followup. He was counseled on return appointment, activity level and side effects to be aware of. DIAGNOSES: Lumbar radiculopathy with lumbar degenerative disk disease, lumbar spinal stenosis. PROCEDURE: Lumbar epidural steroid injection, translaminar approach at L4-L5 level using C-arm fluoroscopic guidance under sterile prep and drape using local anesthetic. MEDICATION INJECTED: A total of 120 mg Depo-Medrol plus 10 mL of preservative-free normal saline and 2 mL of contrast. CONDITION AT DISCHARGE: Stable. The patient tolerated the procedure well, had no complications. FLORENTIN BELLE MD DR: MELITA/diaz JOB#: [id number] / [id number]
== END | disposition home or self-care (01) ==
LOC: PNCL 08:58
PROVIDERS: ATTEND Anesthesiology
DX: M51.16 Intervertebral disc disorders with radiculopathy, lumbar region (principal); M50.020 Cervical disc disorder with myelopathy, mid-cervical region, unspecified level; M48.02 Spinal stenosis, cervical region; M48.061 Spinal stenosis, lumbar region without neurogenic claudication; Z98.890 Other specified postprocedural states
CPT/HCPCS: 62323; J1030; J1040; Q9965

== ENCOUNTER → 2019-05-16 | Outpatient (CLI) | payer MEDICARE ==
--- NOTE | 2019-05-16 13:09 | PAIN ---
DATE OF SERVICE: 05/16/2019 PROGRESS NOTE FOR PAIN CLINIC DIAGNOSES: 1. Lumbar radiculopathy with lumbar degenerative disk disease and lumbar spinal stenosis. 2. Cervical radiculopathy with cervical spinal stenosis and cervical degenerative disk disease. HISTORY OF PRESENT ILLNESS: The patient is a 78-year-old male who returns for followup status post lumbar epidural steroid injections x 2. The patient reports after the last injection about 75% better, and he is doing quite a bit better, increased his activity with greater distance walking, changing positions. The patient reports that he is doing "everything better." The patient reports sleeping better at night. It occasionally wakes him from sleep over the last few days and has some minor weakness in the left greater than right leg, but overall doing much better. The patient reports it is aching and tight, constant with activity, standing, walking, and radiating to posterior gluteus, posterior lateral thigh, lateral anterior thigh, medial thigh, and medial calf as well as the posterior calf. The patient reports 8 on a scale of 10 at its worst, average and least and 8 on a scale of 10 today. The patient reports no new motor or sensory deficits, no new bowel or bladder incontinence or other complaints. PHYSICAL EXAMINATION: VITAL SIGNS: The patient's blood pressure is 146/80, pulse 83, respirations 16, temperature 98.9 degrees Fahrenheit, height is 5 feet 11 inches and weight is 248 pounds. GENERAL: The patient is awake, alert, oriented, appropriate, very pleasant demeanor. HEENT: Shows normocephalic, atraumatic. Extraocular movements are intact and symmetrical. Oral cavity: Mucous membranes moist and pink. Dentition is intact. NECK: Shows anterior throat supple without palpable lymphadenopathy noted. Swallow reflex symmetrical. CHEST: Shows normal on inspection. Breath sounds are clear to auscultation bilaterally. HEART: Shows S1, S2 clear. No murmurs auscultated. ABDOMEN: Soft, nontender, nondistended. BACK: Shows spine grossly in the midline. Normal appearing thoracic kyphosis and lumbar lordotic curvature. Lumbar paraspinous muscle shows symmetrical on inspection, on palpation shows some moderate tenderness diffusely bilaterally, but only in the low lumbar distribution, but only diffusely. The patient has full rotational motion of lumbar spine, both laterally as well as extension and flexion without significant increase in pain. EXTREMITIES: Lower extremities show deep tendon reflexes at 1+ in the patellar and tendo calcaneus tendons. Motor exam is strong with 5/5 dorsiflexion and extension, quadriceps and hamstring flexion and symmetrical. Peripheral pulses are 1+ posterior tibia. No peripheral edema is noted. Options were discussed with the patient. The patient's old chart was reviewed as his current medication regimen updated. Current review of systems updated today as well. We will proceed with a lumbar epidural steroid injection today is third in the series with fluoroscopic guidance. Risks were again discussed including, but not limited to bleeding, infection, possibility of epidural hematoma, subsequent neurological compromise, dural puncture, headaches, spinal cord and/or nerve damage, side effects of steroid medication and poor results regarding pain control. The patient understands and wished to proceed. The patient will return to clinic in approximately 2 weeks for followup. He was counseled as to return appointment, activity level and side effects to be aware of. DIAGNOSES: Lumbar radiculopathy with lumbar degenerative disk disease, lumbar spinal stenosis. PROCEDURE: Lumbar epidural steroid injection, translaminar approach at L4-L5 level using C-arm fluoroscopic guidance under sterile prep and drape using local anesthetic. MEDICATION INJECTED: A total of 120 mg Depo-Medrol plus 10 mL of preservative-free normal saline and 2 mL of contrast. CONDITION AT DISCHARGE: Stable. The patient tolerated procedure well, had no complications. FLORENTIN BELLE MD DR: MELITA/diaz JOB#: [id number] / [id number]
== END | disposition home or self-care (01) ==
LOC: PNCL 11:06
PROVIDERS: ATTEND Anesthesiology
DX: M51.16 Intervertebral disc disorders with radiculopathy, lumbar region (principal); M50.123 Cervical disc disorder at C6-C7 level with radiculopathy; M48.02 Spinal stenosis, cervical region; M48.061 Spinal stenosis, lumbar region without neurogenic claudication; Z98.890 Other specified postprocedural states
CPT/HCPCS: 62323; J1030; J1040; Q9965

== ENCOUNTER → 2019-06-17 | Outpatient (CLI) | payer MEDICARE ==
[~2019-06-17] MED LIST changes: -IOHEXOL 180 MG/ML 10 ML VIAL. ONE; +REGADENOSON 0.4 MG/5 ML DISP.SYRIN. IV ONE; -methylPREDNISolone ACETATE 40 MG/ML VIAL. ONE; -methylPREDNISolone ACETATE 80 MG/ML VIAL. ONE
--- NOTE | 2019-06-17 11:43 | RAD ---
MR#: [id number] Date of Study: 06/17/2019 Ordering Physician: AMADO AGARWAL, Referring Physician: ELAN PINEDO Tech: RT Lisa Flores) (N) APPROVED REPORT Test Type: Pharmacological Stress Nurse/Tech: Teena Mccray R.N. Test Indications: shortness of breath, fatigue Cardiac History: cadm stents 4 years ago, dm, htn, Medications: see ehr Medical History: see ehr Resting ECG: SR Resting Heart Rate: 69 bpm Resting Blood Pressure: 143/68mmHg Pretest Chest Pain: No chest pain Nurse/Tech Notes lungs cta, heart tones regular Consent: The procedure was explained to the patient in lay terms. Informed consent was witnessed. Vitor eout was entered into [employer]. History and Stress Test performed by RT Lisa Flores) (N) Pharm. Details Pharmacologic stress testing was performed using 0.4mg per 5ml of regadenoson given intravenously ove r 7-10 seconds. Stress Symptoms No chest pain or symptoms.Dyspnea POST EXERCISE Reason for Termination: Infusion complete Target HR: No Max HR: 83 bpm Max Blood Pressure: 149/69mmHg Chest Pain: No. Arrhythmia: No. ST Change: No. INTERPRETATION Stress EKG Conclusion: Baseline EKG showed sinus rhythm. No ischemic changes at peak stress. No arr hythmias. Imaging Protocol IMAGE PROTOCOL: Rest Tc-99m/stress Tc-99m 1 day Rest: Stress: Viability: Radiopharm.Tc99m HvjpnjytwGr01r Sestamibi Ibaj11kTc 31mCi Duration 15min. 10min. Img Date 06/17/2019 06/17/2019 Inj-Img [id number]. 60min. Rest Admin Site:IV - Right AntecubitalAdministrator:RT Lisa Flores)(N) Stress Admin Site: IV - Right AntecubitalAdministrator: RT Lisa Flores)(N) STRESS DATA End Diast. Vol.138.0mlAv. Heart Rate74.0bpm End Syst. Vol.44.0mlCO Index BSA0.0L/min Myocardial Encj513.0gEject. Rmcqruwm55.0% Stress Rates Pk. Fill Rate2.94EDV/secLVtime Pk. Fill 221.21msec Pk. Empty Rate3.36ESV/secLVtime Pk. Yjnnf233.93msec 1/3 Pk. Fill0.76EDV/sec Stress Scores Regional WT0.00Summed WT2.00 Regional WM0.00Summed WM1.00 LV Perfusion Scintigraphic images showed fixed inferior wall defect most probably diaphragmatic attenuation artifa ct based on normal wall motion. No other fixed or refersible defects seen. Wall Motion Normal left ventricular systolic function with ejection fraction calculated at 68%. LV Perf. Quant 17 Seg. SSS9.00 17 Seg. SRS9.00 17 Seg. SDS3.00 Stress Defect Extent (% LAD)0.00Rest Defect Extent (% LAD)8.10Rev. Defect Extent (% LAD)0.00 Stress Defect Extent (% LCX) 52.50Rest Defect Extent (% LCX)40.00Rev. Defect Extent (% LCX)1.30 Stress Defect Extent (% RCA)5.60Rest Defect Extent (% RCA)8.90Rev. Defect Extent (% RCA)0.00 Stress Defect Extent (% JESSICA)15.90Rest Defect Extent (% JESSICA)18.70Rev. Defect Extent (% JESSICA)0.40 Conclusion 1. Regadenoson cardioisotope stress test showed diaphragmatic attenuation artifact without any defini te evidence for ischemia or infarct. 2. Normal left ventricular systolic function with ejection fraction calculated at 68%. 3. Low risk for cardiac events. Signed by : Amado Agarwal, Electronically Approved : 06/17/2019 11:42:43
== END | disposition home or self-care (01) ==
LOC: NM 08:57
PROVIDERS: ATTEND Internal Medicine Cardiovascular Disease
DX: R06.09 Other forms of dyspnea (principal); R53.83 Other fatigue; I25.10 Atherosclerotic heart disease of native coronary artery without angina pectoris; I10 Essential (primary) hypertension; E11.9 Type 2 diabetes mellitus without complications
CPT/HCPCS: 78452; 93017; A9500; J2785

== ENCOUNTER → 2019-11-15 | Outpatient (CLI) | payer MEDICARE ==
[~2019-11-15] MED LIST changes: -CETI10TA24 PO; +CETI10TA74 PO; +IOHEXOL 180 MG/ML 10 ML VIAL. ONE; -REGADENOSON 0.4 MG/5 ML DISP.SYRIN. IV ONE; +methylPREDNISolone ACETATE 40 MG/ML VIAL. ONE; +methylPREDNISolone ACETATE 80 MG/ML VIAL. ONE
--- NOTE | 2019-11-15 08:58 | PDOC ---
Progress Note - Pain Clinic Date of Service: DOS: DATE: 11/15/19 TIME: 08:54 Diagnosis: Dx: Cervical radiculopathy with cervical spinal stenosis and cervical degenerative disc disease Lumbar radiculopathy with lumbar degenerative disease and lumbar spinal stenosis History or Present Illness: HPI: 79-year-old male returns follow-up status post lumbar epidural steroid traction x3 and cervical epidural steroid injections in the past patient reports his back still has some significant pain but his main complaint is his neck and shoulders patient ports pain the base the neck rating the upper extremities bilaterally left equal to right in the midline at the upper back and lower neck as well. Patient reports is a 9 on scale 10 is worst average and least is a 9 today patient reports is constant coming more severe aching dull sharp tight and shooting into the upper extremities mostly the shoulders and the posterior triceps bilaterally. Patient reports no new motor or sensory deficits no new bowel or bladder incontinence or other complaints initially was doing much better after his lumbar epidural straight injection but the pain is returning the low back as well. Patient was last seen May 16, 2019 did well but said 5% improvement after his last injection. Physical Exam: VS: Blood pressure is 130/71 pulse 74 respirations are 18 temperature is 97.7 F height is 5 foot 10 inches weight is 2 4 1 pounds PE: PHYSICAL EXAMINATION: GENERAL: The patient is awake, alert, oriented, appropriate, very pleasant demeanor HEENT: Shows normocephalic, atraumatic. Extraocular movements are intact and symmetrical. Oral cavity: Mucous membranes moist and pink. NECK: Shows anterior throat supple without palpable lymphadenopathy noted. Swallow reflex symmetrical. CHEST: Shows normal on inspection. Breath sounds are clear bilaterally, no rales rhonchi or wheezes auscultated. HEART: Shows S1, S2 clear. No murmurs auscultated. ABDOMEN: Soft, nontender, nondistended, obese. No palpable organomegaly is noted. No rebound or guarding demonstrated. BACK: Shows spine grossly in the midline. Normal-appearing cervical lordotic c urvature, paraspinous but shows symmetrical on inspection with palpation some moderate tenderness diffusely in the middle lower distribution the paraspinous musculature but without radiation without trigger points. Patient shows good rotation motion cervical spine both laterally as well as extension with some minor pain forward flexion with minor pain as well in the base of the neck bilaterally. There is slightly increased thoracic kyphosis, some minor flattening of the lumbar lordotic curvature. Lumbar paraspinous muscles show symmetrical on inspection, on palpation shows some moderate tenderness diffusely throughout the upper, middle and lower distribution of the paraspinous muscles bilaterally and also into the lower thoracic paraspinous musculature, firm and tender, but without specific trigger points, without radiation of pain. The patient has good rotational motion of the lumbar spine, both laterally as well as extension and flexion without significant difficulty. No tenderness over the spinous processes, sacrum or sacroiliac regions. EXTREMITIES: Upper extremities show deep tendon reflexes 2+ in the biceps and tricep tendons. Motor exam is 5 on a scale of 5 with right ibm bpm architect, bicep and tricep flexion and 5/5 on the left. Peripheral pulses are 2+ radial. [] peripheral edema is noted bilaterally. Upper extremities are warm and dry to touch, equal in color and appearance. The patient shows good shoulder shrug without loss of strength on resistance also abduction of the shoulder 90 degrees with good strength without loss of strength on resistance as well with minor pain reported the base of the neck bilaterally. SKIN: Shows warm and dry, good turgor. No edema. No sores, rashes or bruising throughout. Procedure: Procedure: Options were discussed with the patient. Patient's old chart was reviewed his his current medication regimen updated current review of systems updated today as well. We will proceed with a cervical epidural steroid traction today with fluoroscopic guidance. Risks were discussed including but not limited to: Bleeding, infection, possibility of epidural hematoma and subsequent neurological compromise, dural puncture, headaches, spinal cord and/or nerve damage, side effects of steroid medication, and poor results regarding pain control. Patient understands wished to proceed. Patient return to clinic in approximate 2 weeks for follow-up. Patient was counseled as to return appointment activity level and side effects to be aware of. Medication Injected: Med Injected: Procedure cervical epidural steroid injection at the C6-7 level, using local anesthetic under sterile prep and drape using C-arm fluoroscopic guidance under local anesthesia medications injected ; 120 mg Depo-Medrol + 5 mL normal saline and 2 mL contrast; condition at discharge is stable patient tolerated procedure well. and had no complications Condition at Discharge: Condition at Discharge: Condition at discharge stable patient tolerated procedure well had no complications. FLORENTIN BELLE MD Nov 15, 2019 08:58
== END | disposition home or self-care (01) ==
LOC: PNCL 08:25
PROVIDERS: ATTEND Anesthesiology
DX: M50.123 Cervical disc disorder at C6-C7 level with radiculopathy (principal); M48.02 Spinal stenosis, cervical region; M51.16 Intervertebral disc disorders with radiculopathy, lumbar region; M48.061 Spinal stenosis, lumbar region without neurogenic claudication; I10 Essential (primary) hypertension; E11.9 Type 2 diabetes mellitus without complications; E78.5 Hyperlipidemia, unspecified; Z79.82 Long term (current) use of aspirin; Z79.899 Other long term (current) drug therapy; Z79.84 Long term (current) use of oral hypoglycemic drugs
CPT/HCPCS: 62321; J1030; J1040; Q9965

== ENCOUNTER → 2019-11-29 | Outpatient (CLI) | payer MEDICARE ==
--- NOTE | 2019-11-29 08:44 | PDOC ---
Progress Note - Pain Clinic Date of Service: DOS: DATE: 11/29/19 TIME: 08:39 Diagnosis: Dx: Cervical radiculopathy with cervical degenerative disc disease and cervical spinal stenosis Lumbar radiculopathy with lumbar degenerative disease and lumbar spinal stenosis History or Present Illness: HPI: 79-year-old male returns follow-up status post cervical epidural straight injection x1. Patient was about 40% improvement overall base the neck and shoulder pain patient ports the pain is returning now slowly over the past few days, in the base the neck and shoulder somewhat more on the right than the left but present bilaterally patient reports the pain is a 8 on a scale of 10 at its worst, over the past week 6 on average and a 3 at its least and is a 6 today. Patient which is aching and dull stabbing at times sometimes shooting and radiating in the upper extremities mostly in the base the neck and shoulders. Patient reports he has been sleeping better generally is not awakening from sleep at night initially he was doing much better with household activities traveling activities as well. Patient reports no new motor or sensory deficits or other complaint Physical Exam: VS: Blood pressure is 145/74 pulse 70 respirations 18 temperature 98.0 F height 5 feet 11 inches weight is 248 pounds. PE: PHYSICAL EXAMINATION: GENERAL: The patient is awake, alert, oriented, appropriate, very pleasant demeanor HEENT: Shows normocephalic, atraumatic. Extraocular movements are intact and sy mmetrical. NECK: Shows anterior throat supple without palpable lymphadenopathy noted. Swallow reflex symmetrical. CHEST: Shows normal on inspection. Breath sounds are clear bilaterally. HEART: Shows S1, S2 clear. No murmurs auscultated. ABDOMEN: Soft, nontender, nondistended, obese. No palpable organomegaly is noted. No rebound or guarding demonstrated. BACK: Shows spine grossly in the midline. Normal-appearing cervical lordotic curvature, cervical paraspinous muscles show symmetrical on inspection with palpation shows some mild tenderness diffusely in the inferior aspect of the paraspinous musculature and into the superior medial trapezius bilaterally slightly more tender on the right than left but symmetrical without evidence of atrophy hypertrophy without trigger points or radiation of pain. Patient shows good rotation motion cervical spine both laterally as well as extension flexion without significant limitation or pain reported.. There is slightly increased thoracic kyphosis, some minor flattening of the lumbar lordotic curvature. Lumbar paraspinous muscles show symmetrical on inspection, on palpation shows some moderate tenderness diffusely throughout the upper, middle and lower distribution of the paraspinous muscles bilaterally without specific trigger points, without radiation of pain. The patient has good rotational motion of the lumbar spine, both laterally as well as extension and flexion without significant difficulty. No tenderness over the spinous processes, sacrum or sacroiliac regions. EXTREMITIES: Upper extremities show deep tendon reflexes 2+ in the biceps and tricep tendons. Motor exam is 5 on a scale of 5 with right telegraph plant maintainer strength, biceps and triceps flexion and 5/5 on the left. Peripheral pulses are 2+ radial. No peripheral edema is noted bilaterally. Upper extremities are warm and dry to touch, equal in color and appearance. SKIN: Shows warm and dry, good turgor. No edema. No sores, rashes or bruising throughout. Procedure: Procedure: Options were discussed with the patient. Patient will chart was reviewed his his current medication regimen updated current review of systems updated today as well. We will proceed with a second in a series cervical epidural steroid injection today with fluoroscopic guidance. Risks were discussed including but not limited to: Bleeding, infection, possibility of epidural hematoma and s ubsequent neurological compromise, dural puncture, headaches, spinal cord and/or nerve damage, side effects of steroid medication, and poor results regarding pain control. Patient understands wished to proceed. Return to clinic in approximate 2 weeks for follow-up was counseled as to return appointment activity level and side effects to be aware of. Medication Injected: Med Injected: Procedure cervical epidural steroid injection at the C6-7 level, using local anesthetic under sterile prep and drape using C-arm fluoroscopic guidance under local anesthesia medications injected ; 120 mg Depo-Medrol + 5 mL normal saline and 2 mL contrast; condition at discharge is stable patient tolerated procedure well. and had no complications Condition at Discharge: Condition at Discharge: Condition at discharge is stable, patient tolerated procedure well had no complications. FLORENTIN BELLE MD Nov 29, 2019 08:44
== END | disposition home or self-care (01) ==
LOC: PNCL 08:06
PROVIDERS: ATTEND Anesthesiology
DX: M50.123 Cervical disc disorder at C6-C7 level with radiculopathy (principal); M48.02 Spinal stenosis, cervical region; M51.16 Intervertebral disc disorders with radiculopathy, lumbar region; M48.061 Spinal stenosis, lumbar region without neurogenic claudication; I10 Essential (primary) hypertension; E78.5 Hyperlipidemia, unspecified; E11.9 Type 2 diabetes mellitus without complications; Z79.899 Other long term (current) drug therapy
CPT/HCPCS: 62321; J1030; J1040; Q9965

== ENCOUNTER → 2019-12-03 | Outpatient (CLI) | payer MEDICARE ==
[~2019-12-03] MED LIST changes: -IOHEXOL 180 MG/ML 10 ML VIAL. ONE; +LEVO88TA4 PO; -methylPREDNISolone ACETATE 40 MG/ML VIAL. ONE; -methylPREDNISolone ACETATE 80 MG/ML VIAL. ONE
== END ==
LOC: LAB 13:46
PROVIDERS: ATTEND Internal Medicine Cardiovascular Disease
DX: Z01.812 Encounter for preprocedural laboratory examination (principal); I25.10 Atherosclerotic heart disease of native coronary artery without angina pectoris; Z20.828 Contact with and (suspected) exposure to other viral communicable diseases
CPT/HCPCS: U0003-CS

== ENCOUNTER 2019-12-06 06:55 | Outpatient (CLI) | payer MEDICARE ==
[~2019-12-06] VITALS: Ht 180.3 cm; Wt 108.9 kg
[2019-12-06] VITALS (11 sets, daily range): BP systolic 121–144; BP diastolic 69–74
[~2019-12-06 06:55] MED LIST changes: +AMLO-187 PO; -AMLO10TA8 PO; -FLUO10CA14 PO; +FLUO10CA15 PO; -LEVO88TA4 PO
[2019-12-06] MEDS ORDERED: LIDOCAINE 1% PF 2 ML VIAL. ONE (07:35)
[2019-12-06] MEDS ORDERED: IODIXANOL 320 MG/ML 100 ML VIAL. ONE (07:35)
[2019-12-06] MEDS ORDERED: LIDOCAINE 1% Multi-Dose 20 ML VIAL. ONE (07:42)
[2019-12-06 07:47] LABS: HEMOGLOBIN 10.6 g/dL (13.0-17.5); RED BLOOD COUNT 3.6 x10^6/uL (4.30-5.70); RED CELL DISTRIBUTION WIDTH 14.2 % (11.5-14.5); WHITE BLOOD COUNT 6.2 x10^3/uL (4.0-11.0)
[2019-12-06 07:53] LABS: CALCIUM 8.4 mg/dL (8.5-10.1); CREATININE 1.3 mg/dL (0.7-1.3); GFR 53.5; POTASSIUM 4.4 mmol/L (3.5-5.1)
[2019-12-06 08:00] LABS: PROTHROMBIN TIME PATIENT 13.3 SEC (11.7-14.0)
[2019-12-06] MEDS ORDERED: LEVO88TA4 PO (08:08)
[2019-12-06] MEDS ORDERED: MIDAZOLAM HCL/PF 2 MG/2 ML VIAL. ONE (08:09)
[2019-12-06] MEDS ORDERED: fentaNYL PF VIAL 100 MCG/2 ML VIAL ONE (08:09)
[2019-12-06] MEDS ORDERED: IODIXANOL 320 MG/ML 100 ML VIAL. IART ONE (08:45)
[2019-12-06] MEDS ORDERED: MIDAZOLAM HCL/PF 2 MG/2 ML VIAL. IV ONE (08:45)
[2019-12-06] MEDS ORDERED: fentaNYL PF VIAL 100 MCG/2 ML VIAL IV ONE (08:45)
[2019-12-06] MEDS ORDERED: LIDOCAINE 1% Multi-Dose 20 ML VIAL. INJ ONE (08:45)
[2019-12-06] MEDS ORDERED: CONTRAST GIVEN. MC PRN (09:00)
[2019-12-06] MEDS ORDERED: IV 1/2 NORMAL SALINE 1,000 ML IV SCH (10:13)
[2019-12-06] MEDS ORDERED: NITROGLYCERIN SUBLINGUAL 0.4 MG BOTTLE OF 25. SL PRN (10:15)
--- NOTE | 2019-12-06 10:27 | CARD ---
MR#: [id number] Date of Study: 12/06/2019 Ordering Physician: AMADO AGARWAL, Referring Physician: AMADO AGARWAL, Tech: TROY DONNELLY RTR APPROVED REPORT Technologist: TROY DONNELLY RTR Nurse: OSMAN JOSEPH RN Procedure(s) performed: Right and left heart catheterization, selective coronary angiography and left ventriculography MODERATE SEATION TIME: 40 MINUTES FLUORO TIME: 6.1 MIN DOSE: 75.4 GYCM2 CONTRAST: 138CC VISI INDICATION The indication(s) include : Refractory dyspnea on exertion. [facility] Clinical Frailty Scale [facility] Clinical Frailty Scale: Mildly Frail Heart Failure Heart Failure: No PROCEDURE NARRATIVE After explaining the risks, benefits and alternative options, informed consent was obtained from theo ent. Patient was brought to the cardiac Continuous Conveyor Screen Drier and his right groin was prepped and draped in the u sual fashion. 20 cc of 2% lidocaine was infiltrated into the skin and subcutaneous tissues for local anesthesia. Arterial and venous accesses were obtained in the right common femoral artery and vein respectively and 6 and 8 Maori sheaths inserted. A 7.5 Maori Saint Landry-Yani catheter was advanced under fluoroscopic guidance and intracardiac pressures and oxygen saturation pressures were measured. Sub sequently, 6 Maori JL4 and 6 Maori JR4 catheters were used to perform selective angiography of the left and right coronary arteries. 6 Maori pigtail catheter was used to perform left ventriculograph y. Patient tolerated the procedure well. Hemostasis was achieved using Perclose suture closure dusty ce and manual compression. There were no immediate complications. FINDINGS A. RIGHT HEART CATHETERIZATION 1. Intracardiac pressures: Mean right atrial pressure 6 mmHg, right ventricular pressure 35/2 mmHg, pulmonary artery pressure 36/14 mmHg with mean PA pressure 21 mmHg and mean pulmonary capillary wedge pressure 15 mmHg. No significant pulmonary hypertension noted. 2. Oxygen saturations: Right atrium 67.8%, pulmonary artery 69.7%, femoral arterial sheath 97.5%. N o evidence of intracardiac shunt. 3. Cardiac output by Alexander method 6.4 L/min. B. LEFT HEART CATHETERIZATION 1. Hemodynamics: Left ventricular end-diastolic pressure 24 mmHg consistent with mild acute on chron ic diastolic heart failure. No pullback gradient across the aortic valve. 2. Left ventriculography: Normal left ventricular systolic function with ejection fraction estimated at 55 to 60%. No significant mitral regurgitation seen. 3. Coronary angiography: a. The left main coronary artery arose from the left sinus of Valsalva, gave rise to the left anteri or descending and left circumflex arteries and did not show any significant stenosis. b. The left anterior descending artery showed patent stent in the proximal segment of the second rhona gonal branch. There is a 90% stenosis noted in the mid to distal segment of the diagonal branch beyo nd which the vessel was of small caliber. c. The left circumflex artery showed widely patent stent in the proximal segment of the first obtuse marginal branch. The second obtuse marginal branch which is a small caliber vessel showed long 80% stenosis in the midsegment. d. The right coronary artery was a large and dominant vessel arising from the right sinus of Valsalv a that showed 40% stenosis in the distal segment. The posterolateral branch which is a small to medi um caliber vessel showed 90% stenosis in the midsegment. This was described in prior cardiac cathete rizations. Conclusion 1. Widely patent previously placed stents in diagonal branch of left anterior descending artery and obtuse marginal branch of left circumflex artery. There was 90% stenosis noted distal to the stent i n the diagonal branch beyond which this is a small caliber vessel, long 80% stenosis noted in a small caliber second obtuse marginal branch and 90% stenosis in the mid segment of small to medium caliber posterolateral branch of right coronary artery, all of which we described in prior cardiac catheteri zation. No lesions needing intervention were noted. 2. No pulmonary hypertension. 3. No evidence of intracardiac shunt. 4. Normal left ventricle systolic function with ejection fraction estimated at 55 to 60%. Recommendations Optimization of medical therapy for coronary artery disease and mild acute on chronic diastolic heart failure. Consider sleep study to rule out sleep apnea as a cause of his dyspnea on minor exertion and generali zed fatigue. Signed by : Amado Agarwal, Electronically Approved : 12/06/2019 10:26:57
--- NOTE | 2019-12-06 12:11 | NUR ---
Discharge Note: JAYME MARIA Discharge instructions and discharge home medications reviewed with Patient and spouse; and a copy given. All questions have been answered and understanding verbalized. The following instructions and handouts were given: Moderate sedation and cardiac cath groin site care. Discontinued lines and drains: Left FA IV dc'd and intact. Patient discharged to home with via personal vehicle.
--- NOTE | 2019-12-06 16:02 | CARD ---
MR#: [id number] Date of Study: 12/06/2019 Ordering Physician: AMADO AGARWAL, Referring Physician: AMADO AGARWAL, Tech: Addis Lal RDCS APPROVED REPORT EXAM: Two-dimensional and M-mode echocardiogram with Doppler and color Doppler. Other Information Quality : Fair INDICATION Cardiac Disease: CAD 2D DIMENSIONS RVDd2.8 (2.9-3.5cm)Left Atrium(2D)3.9 (1.6-4.0cm) IVSd0.9 (0.7-1.1cm)Aortic Root(2D)3.4 (2.0-3.7cm) LVDd5.8 (3.9-5.9cm)LVOT Diameter2.2 (1.8-2.4cm) PWd1.0 (0.7-1.1cm)LVDs3.0 (2.5-4.0cm) FS (%) 30.0 %SV127.9 ml LVEF(%)60.0 (>50%) M-Mode DIMENSIONS Aortic Cusp Exc1.78 (1.5-2.0cm) Aortic Valve AoV Peak Mannie.241.5cm/sAoV VTI53.3cm AO Peak GR.23.3mmHgLVOT VTI 22.30cm AO Mean GR.13mmHgAVA (VTI)1.56cm2 Mitral Valve MV E Vewvoliu27.1cm/sMV DECEL [id number] MV A Tizwpcbc07.1cm/sE/A Ratio0.9 TDI Lateral E' P. V4.89cm/sMedial E' P. V6.44cm/s E/Lateral E'13.7E/Medial E'10.4 Tricuspid Valve TR P. Jgdpvpdw637nn/sRAP KQXSBMFO4iaSz TR Peak Gr.39jxDjDEJB53bkCk Pulmonary Vein S1 Wtcqnzuu08.5cm/sS2 Dlvslqgy49.75cm/s D2 Blmanvru14.8cm/s LEFT VENTRICLE The left ventricle is normal size. There is normal left ventricular wall thickness. The left ventricu lar systolic function is normal. The Ejection Fraction is 55-60%. There is normal LV segmental wall m otion. Transmitral Doppler flow pattern is Grade I-abnormal relaxation pattern. RIGHT VENTRICLE The right ventricle is normal size. The right ventricular systolic function is normal. ATRIA The left atrium size is normal. The right atrium size is normal. The interatrial septum is intact wit h no evidence for an atrial septal defect or patent foramen ovale as noted on 2-D or Doppler imaging. AORTIC VALVE The aortic valve is calcified and displays decreased opening. Doppler and Color Flow revealed no sign ificant aortic regurgitation. Calculated aortic valve area is 1.56 cm2 with maximum pressure gradient of 23 mmHg and mean pressure gradient of 13 mmHg. Doppler and color-flow analysis revealed mild aort ic stenosis. MITRAL VALVE The mitral valve is calcified but opens well. Mitral annular calcification is mild. There is no evide nce of mitral valve prolapse. There is no mitral valve stenosis. Doppler and Color-flow revealed trac e mitral regurgitation. TRICUSPID VALVE The tricuspid valve is normal in structure and function. Doppler and Color Flow revealed trace tricus pid regurgitation. There is mild pulmonary hypertension. The PA pressure was estimated at 39 mmHg. Th ere is no tricuspid valve stenosis. PULMONIC VALVE The pulmonic valve is not well visualized. Doppler and Color Flow revealed no pulmonic valvular regur gitation. There is no pulmonic valvular stenosis. GREAT VESSELS The aortic root is normal in size. The ascending aorta is mildly dilated at 3.5 cm. The IVC is normal in size and collapses >50% with inspiration. PERICARDIAL EFFUSION There is no evidence of significant pericardial effusion. Critical Notification Critical Value: No <Conclusion> The left ventricular systolic function is normal. The Ejection Fraction is 55-60%. There is normal LV segmental wall motion. Transmitral Doppler flow pattern is Grade I-abnormal relaxation pattern. Mild aortic stenosis. Trace mitral regurgitation. Trace tricuspid regurgitation. The PA pressure was estimated at 39 mmHg. There is no evidence of significant pericardial effusion. Signed by : Amado Agarwal, Electronically Approved : 12/06/2019 16:01:30
== END 2019-12-06 12:11 | disposition home or self-care (01) ==
LOC: ECHO 06:55
PROVIDERS: ATTEND Internal Medicine Cardiovascular Disease
DX: I25.10 Atherosclerotic heart disease of native coronary artery without angina pectoris (principal); I11.0 Hypertensive heart disease with heart failure; I50.33 Acute on chronic diastolic (congestive) heart failure; R06.02 Shortness of breath; E78.5 Hyperlipidemia, unspecified; E11.9 Type 2 diabetes mellitus without complications; Z79.82 Long term (current) use of aspirin; Z79.899 Other long term (current) drug therapy; Z79.84 Long term (current) use of oral hypoglycemic drugs
CPT/HCPCS: 36415; 80048; 85027; 85610; 93306; 93460; 99152; 99153; C1760; C1769; C1773; C1892; G0269; J1644; J2250; J3010; J3490; Q9967; C1771

== ENCOUNTER → 2019-12-13 | Outpatient (CLI) | payer MEDICARE ==
[2019-12-06 12:05] VITALS: BP 138/71
[~2019-12-13] MED LIST changes: +IOHEXOL 180 MG/ML 10 ML VIAL. ONE; +LEVO88TA4 PO; +methylPREDNISolone ACETATE 40 MG/ML VIAL. ONE; +methylPREDNISolone ACETATE 80 MG/ML VIAL. ONE
--- NOTE | 2019-12-13 08:22 | PDOC ---
Progress Note - Pain Clinic Date of Service: DOS: DATE: 12/13/19 TIME: 08:17 Diagnosis: Dx: Cervical radiculopathy with cervical degenerative disc disease and cervical spinal stenosis Lumbar radiculopathy with lumbar degenerative disc disease and lumbar spinal stenosis History or Present Illness: HPI: 79-year-old male returns follow-up status post cervical epidural steroid injections x2. Patient was about 70% improvement in the base the neck and left shoulder and upper extremity. Patient reports he is doing much better is very impressed with his improvement has been increasing his activity with greater ease and comfort sleeping better at night generally is not awakening from sleep anymore using his left upper extremity with out significant limitation still some minor pain rates ranging 6 on scale 10 average worst and least over the past week and is a 6 today patient ported stabbing shooting into the base the neck left side left upper extremity but much better than prior to last injection. Patient report no new motor or sensory deficits no new bowel or bladder incontinence, or other complaints. Physical Exam: VS: Blood pressure is 146/80 pulse 73 respiration 16 temperature 90.1 F weight is 251 pounds PE: PHYSICAL EXAMINATION: GENERAL: The patient is awake, alert, oriented, appropriate, very pleasant demeanor HEENT: Shows normocephalic, atraumatic. Extraocular movements are intact and symmetrical. NECK: Shows anterior throat supple without palpable lymphadenopathy noted. Swallow reflex symmetrical. CHEST: Shows normal on inspection. Breath sounds are clear bilaterally. HEART: Shows S1, S2 clear. No murmurs auscultated. ABDOMEN: Soft, nontender, nondistended. No palpable organomegaly is noted. No rebound or guarding demonstrated. BACK: Shows spine grossly in the midline. Normal-appearing cervical lordotic curvature. Neck shows good rotation motion of the cervical spine both laterally as well as full extension full forward flexion without significant increase in pain. Posterior cervical musculature is symmetrical with palpation shows some mild tenderness in the inferior aspect the cervical paraspinous musculature but not superiorly and not into the superior medial trapezius. There is slightly increased thoracic kyphosis, some minor flattening of the lumbar lordotic curvature. Lumbar paraspinous muscles show symmetrical on inspection, on palpation shows some moderate tenderness diffusely throughout the upper, middle and lower distribution of the paraspinous muscles bilaterally and also into the lower thoracic paraspinous musculature, firm and tender, but without specific trigger points, without radiation of pain. The patient has good rotational motion of the lumbar spine, both laterally as well as extension and flexion without significant difficulty. No tenderness over the spinous processes, sacrum or sacroiliac regions. EXTREMITIES: Upper extremities show deep tendon reflexes 2+ in the biceps and triceps tendons. Motor exam is 5 on a scale of 5 with right block sealer, biceps and triceps flexion and 5/5 on the left. Peripheral pulses are 2+ posterior radial. No peripheral edema is noted bilaterally. Upper extremities are warm and dry to touch, equal in color and appearance. SKIN: Shows warm and dry, good turgor. No edema. No sores, rashes or bruising throughout. Procedure: Procedure: Options were discussed with the patient. Patient's old chart was reviewed his his current medication regimen updated current review of systems updated today as well. We will proceed with a third in the series cervical epidural steroid injection today with fluoroscopic guidance. Risks were discussed including but not limited to: Bleeding, infection, possibility of epidural hematoma and subsequent neurological compromise, dural puncture, headaches, spinal cord and/or nerve damage, side effects of steroid medication, and poor results regarding pain control. Patient understands wished to proceed. Patient return to clinic in possibly 2 weeks for follow-up was counseled as to return appointment activity level and side effects to be aware of. Medication Injected: Med Injected: Procedure cervical epidural steroid injection at the C6-7 level, using local anesthetic under sterile prep and drape using C-arm fluoroscopic guidance under local anesthesia medications injected ; 120 mg Depo-Medrol + 5 mL normal saline and 2 mL contrast; condition at discharge is stable patient tolerated procedure well. and had no complications Condition at Discharge: Condition at Discharge: Condition at discharge is stable patient tolerated the procedure well and had no complications. FLORENTIN BELLE MD Dec 13, 2019 08:22
== END ==
LOC: PNCL 07:44
PROVIDERS: ATTEND Anesthesiology
DX: M50.123 Cervical disc disorder at C6-C7 level with radiculopathy (principal); M51.16 Intervertebral disc disorders with radiculopathy, lumbar region; M48.061 Spinal stenosis, lumbar region without neurogenic claudication; M48.02 Spinal stenosis, cervical region; I11.0 Hypertensive heart disease with heart failure; I50.9 Heart failure, unspecified; E78.5 Hyperlipidemia, unspecified; E11.9 Type 2 diabetes mellitus without complications; Z79.82 Long term (current) use of aspirin; Z79.84 Long term (current) use of oral hypoglycemic drugs; Z79.899 Other long term (current) drug therapy
CPT/HCPCS: 62321; J1030; J1040; Q9965

== ENCOUNTER → 2019-12-18 | Outpatient (CLI) | payer MEDICARE ==
[2019-12-06 12:05] VITALS: BP 138/71
[~2019-12-18] MED LIST changes: -IOHEXOL 180 MG/ML 10 ML VIAL. ONE; -methylPREDNISolone ACETATE 40 MG/ML VIAL. ONE; -methylPREDNISolone ACETATE 80 MG/ML VIAL. ONE
--- NOTE | 2019-12-18 14:15 | KCIC ---
CT HEAD WO CONTRAST History:Right-sided headache for a few weeks, blurred vision Comparison: None. Technique: Noncontrast CT imaging was performed of the head. Exposure: One or more of the following individualized dose reduction techniques were utilized for this examination: 1. Automated exposure control 2. Adjustment of the mA and/or kV according to patient size 3. Use of iterative reconstruction technique. Findings: No acute extra-axial or parenchymal hemorrhage is identified. There is an approximate 1 cm focus of lower density of the left for subtle lobe extending to the cortical surface, not associated with mass effect. There is no significant intra-axial mass effect, midline shift, or extra-axial fluid collection. The alvarez-white differentiation of the major vascular territories is preserved. The ventricles, sulci, and cisterns are within normal limits in size and configuration. The mastoid air cells and the visualized paranasal sinuses are aerated. No acute calvarial abnormality is identified. There is atherosclerotic calcification of the carotid siphons bilaterally. Impression: 1. There is no evidence of acute intracranial hemorrhage. There is focus of lower density of the left occipital lobe extending to the cortical surface, could be focus of at least subacute or chronic infarct. Electronically signed by: King Asif MD (12/18/2019 2:13 PM) [facility]
== END ==
LOC: KCIC CT 12:55
PROVIDERS: ATTEND Family Medicine
DX: R51.9 Headache, unspecified (principal); H53.8 Other visual disturbances; I70.0 Atherosclerosis of aorta
CPT/HCPCS: 70450

== ENCOUNTER → 2020-01-08 | Outpatient (CLI) | payer MEDICARE ==
[2019-12-06 12:05] VITALS: BP 138/71
== END ==
LOC: SLPLAB 18:52
PROVIDERS: ATTEND Internal Medicine Pulmonary Disease
DX: G47.34 Idiopathic sleep related nonobstructive alveolar hypoventilation (principal)
CPT/HCPCS: 95810

== ENCOUNTER 2020-02-18 10:11 | Emergency (ER) | payer MEDICARE ==
[~2020-02-18] VITALS: Ht 180.3 cm; Wt 109.0 kg
[2020-02-18 10:20] VITALS: BP 161/83
--- NOTE | 2020-02-18 10:38 | ED.ADGEN ---
Past Medical History Past Medical History: Diabetes-Type II, Hypertension, Hypothyroid Additional Past Medical Histor: Hyperlipidmia, Past Surgical History: Cholecystectomy, Knee Replacement Additional Past Surgical Histo: Cardiac stents x's 2, Left total knee Smoking Status: Never Smoker Alcohol Use: Heavy Drug Use: None General Adult EDM: Chief Complaint: LOWEREXTREMITY INJURY HPI: HPI: Patient is a 79 year old male who presents with left knee pain after a fall yesterday. Patient states he was carrying some bags up the stairs and fell forward onto the stairs. Hit his left kneecap on the steps and caught himself on his left elbow. States his elbow is fine today. He went and saw his primary care yesterday and had x-rays done. Patient states he was seen by his primary care physicians midlevel who looked at the x-rays and did not think she saw any fractures but told him that she is not a radiologist and cannot be completely sure. Patient has not taken anything for pain, ice it, use any compression or braces. He has an appointment for follow-up with his orthopedic surgeon in about 2 weeks but states he cannot wait that long and the pain is worse today. Rates the pain is a 10 out of 10. He is taking a blood thinner for stents, but denies any bruising or bleeding. Otherwise has been well, denies any recent illness. Review of Systems: Review of Systems: Negative except for HPI Allergies: Allergies: Allergies Coded Allergies Type Severity Reaction Last Updated Verified No Known Drug Allergies 05/05/15 No Physical Exam: PE: Constitutional: Well developed, well nourished, no acute distress, non-toxic appearance. [] HENT: Normocephalic, atraumatic, bilateral external ears normal, oropharynx moist, no oral exudates, nose normal. [] Eyes: PERRLA, EOMI, conjunctiva normal, no discharge. [] Neck: Normal range of motion, no tenderness, supple, no stridor. [] Cardiovascular:Heart rate regular rhythm, no murmur [] Lungs & Thorax: Bilateral breath sounds clear to auscultation [] Abdomen: Bowel sounds normal, soft, no tenderness, no masses, no pulsatile masses. [] Skin: Warm, dry, no erythema, no rash. [] No bruising Back: No tenderness, no CVA tenderness. [] Extremities: No tenderness, no cyanosis, no clubbing, ROM intact, no edema. [] Mild effusion, tenderness over joint line and patella Neurologic: Alert and oriented X 3, normal motor function, normal sensory function, no focal deficits noted. [] Psychologic: Affect normal, judgement normal, mood normal. [] Current Patient Data: Vital Signs: Vital Signs Date Time Temp Pulse Resp B/P (MAP) Pulse Ox O2 Delivery O2 Flow Rate FiO2 02/18/20 10:20 97.9 101 22 161/83 (109) 95 Room Air 97.9 EKG: EKG: [] Heart Score: Risk Factors: Risk Factors: DM, Current or recent (<one month) smoker, HTN, HLP, family history of CAD, obesity. Risk Scores: Score 0 - 3: 2.5% MACE over next 6 weeks - Discharge Home Score 4 - 6: 20.3% MACE over next 6 weeks - Admit for Clinical Observation Score 7 - 10: 72.7% MACE over next 6 weeks - Early Invasive Strategies Radiology/Procedures: Radiology/Procedures: 4 view study of the left knee Clinical indications: Fall and pain. FINDINGS: Total left knee arthroplasty is evident which is well aligned. No acute fracture or lytic process is seen. IMPRESSION: Total left knee arthroplasty. No acute osseous abnormality. [] Course & Med Decision Making: Course & Med Decision Making Pertinent Labs and Imaging studies reviewed. (See chart for details) [] Dragon Disclaimer: Dragon Disclaimer: This electronic medical record was generated, in whole or in part, using a voice recognition dictation system. Departure Departure Impression: Primary Impression: Contusion of left knee Disposition: 01 DC HOME SELF CARE/HOMELESS Condition: STABLE Referrals: FATEMEH WELLS MD (PCP) Patient Instructions: Elastic Bandage and RICE Scripts Tramadol Hcl (TRAMADOL HCL) 50 Mg Tablet 50 MG PO Q6HRS PRN for PAIN for 3 Days, #12 TAB Prov: MARY MERCADO MD 02/18/20 MARY MERCADO MD Feb 18, 2020 10:38
--- NOTE | 2020-02-18 11:06 | RAD ---
4 view study of the left knee Clinical indications: Fall and pain. FINDINGS: Total left knee arthroplasty is evident which is well aligned. No acute fracture or lytic p rocess is seen. IMPRESSION: Total left knee arthroplasty. No acute osseous abnormality. Electronically signed by: Sigifredo Arizmendi MD (02/18/2020 11:03 AM) [id number]
[2020-02-18] MEDS ORDERED: TRAM50TA PO (11:18)
== END 2020-02-18 11:30 | disposition home or self-care (01) ==
LOC: ER 10:11
DX: S80.02XA Contusion of left knee, initial encounter (principal); E11.9 Type 2 diabetes mellitus without complications; I10 Essential (primary) hypertension; E03.9 Hypothyroidism, unspecified; Z95.5 Presence of coronary angioplasty implant and graft; W10.8XXA Fall (on) (from) other stairs and steps, initial encounter; Y93.89 Activity, other specified; Y92.89 Other specified places as the place of occurrence of the external cause; Y99.8 Other external cause status
CPT/HCPCS: 73564; 99283; 99284

== ENCOUNTER → 2020-05-18 | Outpatient (CLI) | payer MEDICARE ==
[~2020-05-18] MED LIST changes: +GEMF600T20 PO; -GEMF600T8 PO; +IOHEXOL 180 MG/ML 10 ML VIAL. ONE; +TRAM50TA PO; +methylPREDNISolone ACETATE 40 MG/ML VIAL. ONE; +methylPREDNISolone ACETATE 80 MG/ML VIAL. ONE
--- NOTE | 2020-05-18 11:10 | PDOC ---
Progress Note - Pain Clinic Date of Service: DOS: DATE: 05/18/20 TIME: 11:06 Diagnosis: Dx: Cervical radiculopathy with cervical degenerative disc disease and cervical spinal stenosis Lumbar radiculopathy with lumbar degenerative disease and lumbar spinal stenosis History or Present Illness: HPI: 79-year-old male returns in follow-up status post cervical epidural steroid injections x3 most recently November 2019. Patient did very well about 75% improvement reports the pain is returning now in the neck and shoulders bilater al upper extremities radiating posterior deltoid triceps onto the anterior biceps region of the forearms and hands with some numbness and tingling patient also has pain in the low back and left lower extremity radiating into the left leg into the foot as well. Patient reports her chief complaint however is the neck and upper extremity pain rated a 10 on scale 10 is worse over the past week 8 on average 8 its least and is 8 today patient describes as aching and tight tingling burning and shooting worse with repetitive motions reaching over his head with his arms driving. Patient reported does awaken him from sleep occasionally but not every night. We had called the Medrol Dosepak informed few weeks ago and that did help with his low back and leg better than the neck and shoulders. Patient reports no new motor or sensory deficits no bowel or bladder incontinence or other complaints. Physical Exam: VS: Blood pressure is 126/76 pulse 77 respiration 16 temperature 98.2 F height is 5 foot 11 inches weight is 249 pounds PE: PHYSICAL EXAMINATION: GENERAL: The patient is awake, alert, oriented, appropriate, very pleasant demeanor HEENT: Shows normocephalic, atraumatic. Extraocular movements are intact and s ymmetrical. Oral cavity: Mucous membranes moist and pink. Patient is edentulous NECK: Shows anterior throat supple without palpable lymphadenopathy noted. Swallow reflex symmetrical. CHEST: Shows normal on inspection. Breath sounds are clear bilaterally, no rales rhonchi or wheezes auscultated bilaterally. HEART: Shows S1, S2 clear. No murmurs auscultated. ABDOMEN: Soft, nontender, nondistended, obese. No palpable organomegaly is noted. BACK: Shows spine grossly in the midline. Normal-appearing cervical lordotic curvature. Cervical paraspinous muscles show symmetrical on inspection, with palpation some moderate tenderness diffusely in the inferior aspect of the cervical paraspinous muscles bilaterally but without atrophy hypertrophy patient does show good rotation motion cervical spine with lateral as well as extension flexion without significant increase in pain. There is slightly increased thoracic kyphosis, some minor flattening of the lumbar lordotic curvature. Lumbar paraspinous muscles show symmetrical on inspection, on palpation shows some moderate tenderness diffusely throughout the upper, middle and lower distribution of the paraspinous muscles without specific trigger points, without radiation of pain. The patient has good rotational motion of the lumbar spine, both laterally as well as extension and flexion without significant difficulty. No tenderness over the spinous processes, sacrum or sacroiliac regions. EXTREMITIES: Lower extremities show deep tendon reflexes 1+ in the patellar and tendo calcaneus tendons. Motor exam is 5 on a scale of 5 with right dorsiflexion, extension, quadriceps and hamstring flexion and 5/5 on the left. Peripheral pulses are 1+ posterior tibial. No peripheral edema is noted bilaterally. Lower extremities are warm and dry to touch, equal in color and appearance. Upper extremities show deep tendon reflexes at 2+ in the bicep and triceps tendons, motor exam strong with 5 out of 5 pig farmer strength bicep and tricep flexion is symmetrical. Patient's peripheral pulses are 2+ radial bilaterally no peripheral edema is noted. SKIN: Shows warm and dry, good turgor. No edema. No sores, rashes or bruising throughout. Procedure: Procedure: Options were discussed with the patient. Patient's old chart was reviewed his his current medication regimen updated current review of systems updated today as well. We will proceed with a cervical epidural steroid injection today with fluoroscopic guidance as the first in the series. Risks were discussed including but not limited to: Bleeding, infection, possibility of epidural hematoma and subsequent neurological compromise, dural puncture, headaches, spinal cord and/or nerve damage, side effects of steroid medication, and poor results regarding pain control. Patient understands and wished to proceed. Patient return to the clinic in approximate 2 weeks for follow-up, was counseled as to return appointment activity level and side effects to be aware of. Medication Injected: Med Injected: Procedure cervical epidural steroid injection at the C6-7 level, using local anesthetic under sterile prep and drape using C-arm fluoroscopic guidance under local anesthesia medications injected ; 120 mg Depo-Medrol + 5 mL normal chucky ine and 2 mL contrast; condition at discharge is stable patient tolerated procedure well. and had no complications Condition at Discharge: Condition at Discharge: Condition at discharge stable, patient tolerated procedure well and had no complications. FLORENTIN BELLE MD May 18, 2020 11:10
--- NOTE | 2020-05-18 11:11 | PDOC4 ---
PROCEDURE Procedure Patient was consented for cervical epidural steroid injection. Risks were d iscussed including but not limited to: Bleeding, infection, possibility of epidural hematoma and subsequent neurological compromise, dural puncture, headaches, spinal cord and/or nerve damage, side effects of steroid medication, and poor results regarding pain control. Patient understands and wished to proceed. Procedure cervical epidural steroid injection at the C6-7 level, using local anesthetic under sterile prep and drape using C-arm fluoroscopic guidance under local anesthesia medications injected ; 120 mg Depo-Medrol + 5 mL normal saline and 2 mL contrast; condition at discharge is stable patient tolerated procedure well. and had no complications FLORENTIN BELLE MD May 18, 2020 11:11
== END | disposition home or self-care (01) ==
LOC: PNCL 10:32
PROVIDERS: ATTEND Anesthesiology
DX: M50.10 Cervical disc disorder with radiculopathy, unspecified cervical region (principal); M48.02 Spinal stenosis, cervical region; M51.16 Intervertebral disc disorders with radiculopathy, lumbar region; M48.061 Spinal stenosis, lumbar region without neurogenic claudication; I25.10 Atherosclerotic heart disease of native coronary artery without angina pectoris; I10 Essential (primary) hypertension; E78.00 Pure hypercholesterolemia, unspecified; E11.9 Type 2 diabetes mellitus without complications; K21.9 Gastro-esophageal reflux disease without esophagitis; M19.90 Unspecified osteoarthritis, unspecified site; E66.9 Obesity, unspecified; E03.9 Hypothyroidism, unspecified; F41.9 Anxiety disorder, unspecified; Z90.49 Acquired absence of other specified parts of digestive tract; Z98.890 Other specified postprocedural states; Z79.82 Long term (current) use of aspirin; Z79.84 Long term (current) use of oral hypoglycemic drugs; Z79.899 Other long term (current) drug therapy; Z72.89 Other problems related to lifestyle
CPT/HCPCS: 62321; J1030; J1040; Q9965; 77002

== ENCOUNTER → 2020-07-20 | Outpatient (CLI) | payer MEDICARE ==
--- NOTE | 2020-07-20 11:38 | PDOC ---
Progress Note - Pain Clinic Date of Service: DOS: DATE: 07/20/20 TIME: 11:35 Diagnosis: Dx: Cervical radiculopathy cervical degenerative disc disease and cervical spinal stenosis Lumbar radiculopathy with lumbar degenerative disease and lumbar spinal stenosis History or Present Illness: HPI: 79-year-old male returns for follow-up status post cervical epidural to injection x1 May 18, 2020. Patient reports he did very well about 75% improvement in pain returning slowly the base the neck and shoulders at this time right essentially equal to left patient reports is getting more noticeable initially was doing much better with doing household activities work activities distance walking sleeping better now is beginning to wake him from sleep sporadically maybe once every 2-3 hours over the past 2 weeks patient reports his pain is an 8 on a scale of 10 is worse over the past week 8 on average 8 its least is an 8 today. Patient reports aching can be constant base neck and shoulders as well as the upper extremities right essentially equal to left with some tingling and numbness into the arms and forearms at times. Patient reports no loss of motor function but easy fatigability of the upper extremities with repetitive motions or reaching with weightbearing of the arms. Patient reports no new motor or sensory deficits or other complaints. Physical Exam: VS: Blood pressure is 147/78 pulse 71 respirations 18 temperature 98.3 F height is 5 foot 11 inches weight is 250 pounds PE: PHYSICAL EXAMINATION: GENERAL: The patient is awake, alert, oriented, appropriate, very pleasant demeanor HEENT: Shows normocephalic, atraumatic. Extraocular movements are intact and symmetrical. Oral cavity: Mucous membranes moist and pink. Patient is edentulous NECK: Shows anterior throat supple without palpable lymphadenopathy noted. Swallow reflex symmetrical. CHEST: Shows normal on inspection. Breath sounds are clear bilaterally. HEART: Shows S1, S2 clear. No murmurs auscultated. ABDOMEN: Soft, nontender, nondistended, obese. No palpable organomegaly is noted. No rebound or guarding demonstrated. BACK: Shows spine grossly in the midline. Normal-appearing cervical lordotic curvature. Cervical paraspinous muscles show symmetrical with inspection, on palpation shows a moderate tenderness diffusely in the inferior aspect of the cervical paraspinous muscular belly diffusely without radiation. There is slightly increased thoracic kyphosis, some minor flattening of the lumbar lordotic curvature. Lumbar paraspinous muscles show symmetrical on inspection, on palpation shows some moderate tenderness diffusely throughout the upper, middle and lower distribution of the paraspinous muscles, but without specific trigger points, without radiation of pain. The patient has good rotational motion of the lumbar spine, both laterally as well as extension and flexion without significant difficulty. Cervical spine shows good rotation motion slightly guarded with extension but not with right left lateral rotation which is past 45 degrees closer to 90 degrees without significant difficulty full forward flexion is performed at difficulty as well. EXTREMITIES: Lower extremities show deep tendon reflexes 1 in the patellar and tendo calcaneus tendons. Motor exam is 5 on a scale of 5 with right dorsiflexion, extension, quadriceps and hamstring flexion and 5/5 on the left. Peripheral pulses are 1+ posterior tibial. No peripheral edema is noted bilaterally. Lower extremities are warm and dry to touch, equal in color and appearance. Upper extremity show deep tendon reflexes 2+ in the bicep and tricep tendons, motor exam strong with 5 out of 5 training program manager strength bicep and tricep flexion. Peripheral pulses are 2+ radial no peripheral edema bilaterally. SKIN: Shows warm and dry, good turgor. No edema. No sores, rashes or bruising throughout. Procedure: Procedure: Options were discussed with the patient. Patient's old chart was reviewed his his current medication regimen updated current review of systems updated today as well. We will proceed with cervical epidural steroid injection today with fluoroscopic guidance. Risks were discussed including but not limited to: Bleeding, infection, possibility of epidural hematoma and subsequent neurologi rosamaria compromise, dural puncture, headaches, spinal cord and/or nerve damage, side effects of steroid medication, and poor results regarding pain control. Patient understands and wished to proceed. She will return to clinic in approximate 2 weeks for follow-up, was counseled as to return appointment activity level and side effects to be aware of. Medication Injected: Med Injected: Procedure cervical epidural steroid injection at the C6-7 level, using local anesthetic under sterile prep and drape using C-arm fluoroscopic guidance under local anesthesia medications injected ;120 mg Depo-Medrol +5 mL normal saline and 2 mL contrast; condition at discharge is stable patient tolerated procedure well. and had no complications Condition at Discharge: Condition at Discharge: Condition at discharge is stable, patient tolerated procedure well and had no complications. FLORENTIN BELLE MD July 20, 2020 11:38
--- NOTE | 2020-07-20 11:38 | PDOC4 ---
PROCEDURE Procedure Patient is consented for cervical epidural steroid injection. Risks were di scussed including but not limited to: Bleeding, infection, possibility of epidural hematoma and subsequent neurological compromise, dural puncture, headaches, spinal cord and/or nerve damage, side effects of steroid medication, and poor results regarding pain control. Patient understands and wished to proceed. Procedure cervical epidural steroid injection at the C6-7 level, using local anesthetic under sterile prep and drape using C-arm fluoroscopic guidance under local anesthesia medications injected ;120 mg Depo-Medrol +5 mL normal saline and 2 mL contrast; condition at discharge is stable patient tolerated procedure well. and had no complications FLORENTIN BELLE MD July 20, 2020 11:38
== END | disposition home or self-care (01) ==
LOC: PNCL 10:55
PROVIDERS: ATTEND Anesthesiology
DX: M50.10 Cervical disc disorder with radiculopathy, unspecified cervical region (principal); M48.02 Spinal stenosis, cervical region; M51.16 Intervertebral disc disorders with radiculopathy, lumbar region; M48.061 Spinal stenosis, lumbar region without neurogenic claudication; I25.10 Atherosclerotic heart disease of native coronary artery without angina pectoris; I10 Essential (primary) hypertension; E78.00 Pure hypercholesterolemia, unspecified; K21.9 Gastro-esophageal reflux disease without esophagitis; M19.90 Unspecified osteoarthritis, unspecified site; E11.9 Type 2 diabetes mellitus without complications; E03.9 Hypothyroidism, unspecified; F41.9 Anxiety disorder, unspecified; N40.0 Benign prostatic hyperplasia without lower urinary tract symptoms; Z90.49 Acquired absence of other specified parts of digestive tract; Z98.890 Other specified postprocedural states; Z79.82 Long term (current) use of aspirin; Z79.84 Long term (current) use of oral hypoglycemic drugs; Z72.89 Other problems related to lifestyle; Z79.899 Other long term (current) drug therapy
CPT/HCPCS: 62321; J1030; J1040; Q9965

== ENCOUNTER → 2020-11-12 | Outpatient (CLI) | payer MEDICARE ==
[~2020-11-12] MED LIST changes: -BISO10TA PO; +BISO10TA8 PO; -methylPREDNISolone ACETATE 40 MG/ML VIAL. ONE
--- NOTE | 2020-11-12 09:39 | PDOC ---
Progress Note - Pain Clinic Date of Service: DOS: DATE: 11/12/20 TIME: 09:36 Diagnosis: Dx: Cervical radiculopathy with cervical degenerative disc disease and cervical spinal stenosis Lumbar radiculopathy with lumbar degenerative disc disease lumbar spinal stenosis History or Present Illness: HPI: 80-year-old male returns for follow-up status post cervical epidural steroid injections last seen July 20, 2020. Patient reports he is doing very well since that and he returned from [place] where his vacation during the summer and is now having some significant pain in the right upper extremity base the neck and shoulder and new finding of right sided headaches which she has not had significantly in the past radiating to the superior aspect of the occipital distribution as well as around the ear and some on the right jaw. Patient reports is worse when his neck pain is worse worse with walking standing c hanging positions is beginning to awaken him from sleep about every 6-8 hours when originally done much better about 90% improvement after his last injection which was July 20. Patient reports besides the headaches his pain in his neck and arm is returning to its normal baseline rated as a 9 on scale 10 is worst least and average over the past week and is a 9 today patient ports shooting aching and sometimes unbearable. Patient reports no visual disturbances no change in hearing he does wear hearing aid in his left ear. Patient reports no new motor deficits. Physical Exam: VS: Blood pressure is 161/80 pulse was 88 respirations 18 temperature 98.2 F weight is 222 pound PE: PHYSICAL EXAMINATION: GENERAL: The patient is awake, alert, oriented, appropriate, very pleasant in demeanor HEENT: Shows normocephalic, atraumatic. Extraocular movements are intact and symmetrical. Oral cavity: Mucous membranes moist and pink. Edentulous NECK: Shows anterior throat supple without palpable lymphadenopathy noted. Swallow reflex symmetrical. CHEST: Shows normal on inspection. Breath sounds are clear bilaterally, distant no rales rhonchi wheezes auscultated. HEART: Shows S1, S2 clear. No murmurs auscultated. ABDOMEN: Soft, nontender, nondistended, obese. No palpable organomegaly is noted. N BACK: Shows spine grossly in the midline. Normal-appearing cervical lordotic curvature. Cervical paraspinous muscles show symmetrical on inspection, on palpation some moderate tenderness diffusely more on the right than the left in the inferior aspect of the cervical paraspinous musculature and into the right superior medial trapezius also some tenderness in the superior aspect of the cervical paraspinous muscles on the right and into the occipital musculature on the right as well but without trigger points or radiation. There is slightly increased thoracic kyphosis, some minor flattening of the lumbar lordotic curvature. EXTREMITIES: Upper extremities show deep tendon reflexes 2+ in the biceps and tricep tendons. Motor exam is 5 on a scale of 5 with right skull chopper, biceps and tricep flexion and 5/5 on the left. Peripheral pulses are 2+ radial. No peripheral edema is noted bilaterally. Upper extremities are warm and dry to to uch, equal in color and appearance. SKIN: Shows warm and dry, good turgor. No edema. No sores, rashes or bruising throughout. Procedure: Procedure: Options were discussed with the patient. Patient's old chart was reviewed as his current medication regimen updated current review of systems updated today as well. We will proceed with a cervical epidural steroid injection today with fluoroscopic guidance. Risks were discussed including but not limited to: Bleeding, infection, possibility of epidural hematoma and subsequent neurological compromise, dural puncture, headaches, spinal cord and/or nerve damage, side effects of steroid medication, and poor results regarding pain control. Patient understands and wished to proceed. She will return to the clinic in approximately 2 weeks for follow-up, was counseled as return appointment, activity level, and side effects to be aware of. Medication Injected: Med Injected: Procedure cervical epidural steroid injection at the C6-7 level, using local anesthetic under sterile prep and drape using C-arm fluoroscopic guidance under local anesthesia medications injected ;120 mg Depo-Medrol +5 mL normal saline and 2 mL contrast; condition at discharge is stable patient tolerated procedure well. and had no complications Condition at Discharge: Condition at Discharge: Condition at discharge is stable, patient already the procedure well and had no complications. FLORENTIN BELLE MD Nov 12, 2020 09:39
--- NOTE | 2020-11-12 09:40 | PDOC4 ---
Procedure Note: ICD 10 Code: ICD 10 Code: M54.12 M4 8.02 M50.30 Procedure Note: Patient was consented for cervical epidural steroid injection with fluoroscopic guidance. Risks were discussed including but not limited to: Bleeding, infection, possibility of epidural hematoma and subsequent neurological compromise, dural puncture, headaches, spinal cord and/or nerve damage, side effects of steroid medication, and poor results regarding pain control. Patient understands and wished to proceed. Procedure cervical epidural steroid injection at the C6-7 level, using local anesthetic under sterile prep and drape using C-arm fluoroscopic guidance under local anesthesia medications injected ;120 mg Depo-Medrol +5 mL normal saline and 2 mL contrast; condition at discharge is stable patient tolerated procedure well. and had no complications FLORENTIN BELLE MD Nov 12, 2020 09:40
== END | disposition home or self-care (01) ==
LOC: PNCL 08:38
PROVIDERS: ATTEND Anesthesiology
DX: M50.10 Cervical disc disorder with radiculopathy, unspecified cervical region (principal); M51.16 Intervertebral disc disorders with radiculopathy, lumbar region; M48.02 Spinal stenosis, cervical region; M48.061 Spinal stenosis, lumbar region without neurogenic claudication; I25.10 Atherosclerotic heart disease of native coronary artery without angina pectoris; I10 Essential (primary) hypertension; E78.00 Pure hypercholesterolemia, unspecified; K21.9 Gastro-esophageal reflux disease without esophagitis; M19.90 Unspecified osteoarthritis, unspecified site; E11.9 Type 2 diabetes mellitus without complications; E03.9 Hypothyroidism, unspecified; F41.9 Anxiety disorder, unspecified; Z79.82 Long term (current) use of aspirin; Z79.84 Long term (current) use of oral hypoglycemic drugs; Z79.899 Other long term (current) drug therapy; Z90.49 Acquired absence of other specified parts of digestive tract; Z98.890 Other specified postprocedural states; Z72.89 Other problems related to lifestyle
CPT/HCPCS: 62321; J1040; Q9965; 62323

== ENCOUNTER → 2020-11-30 | Outpatient (CLI) | payer MEDICARE ==
[~2020-11-30] MED LIST changes: +HYDR-2765 PO; +methylPREDNISolone ACETATE 40 MG/ML VIAL. ONE
--- NOTE | 2020-11-30 11:56 | PDOC ---
Progress Note - Pain Clinic Date of Service: DOS: DATE: 11/30/20 TIME: 11:51 Diagnosis: Dx: Cervical radiculopathy with cervical degenerative disease and cervical spinal stenosis Lumbar radiculopathy lumbar degenerative disease and lumbar spinal stenosis History or Present Illness: HPI: 80-year-old male returns for follow-up status post cervical epidural steroid injections most recently November 12 patient did very well but 90% improvement after facet injections with pain returning in the right upper extremity greater than the left but in the base of the shoulders as well as the base of the neck patient reports that in the last week is a 10 on scale 10 at all times worst least and average is a 10 today he describes it is unbearable aching dull tight sharp shooting and radiating in the right upper extremity greater than left into the forearm toes of the hand and fingers with some numbness as well in both hands and the fingers with some moderate fatigability with repetitive motions raising his arms over his head difficulty with sleeping awakens him with sleep about once or twice a night patient reports his arms feel fatigue especially on the right side with even normal daily activities. Patient reports is worse with repetitive motions driving reaching forward with weightbearing as well as reaching posteriorly with weightbearing. 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 Patient's blood pressure is 96/60 recheck 93/61. We discussed the patient's medication regimen and he is on 3 different medications for blood pressure and heart rate and will discuss this with his primary care physician to see if perhaps this could be altered and or some of the medicines eliminated. Physical Exam: VS: Blood pressure 96/60 pulse 80 respirations 18 temperature 98.0 F weight is 223 pounds PE: PHYSICAL EXAMINATION: GENERAL: The patient is awake, alert, oriented, appropriate, very pleasant in demeanor HEENT: Shows normocephalic, atraumatic. Extraocular movements are intact and symmetrical. Oral cavity: Mucous membranes moist and pink. Edentulous NECK: Shows anterior throat supple without palpable lymphadenopathy noted. Swallow reflex symmetrical. CHEST: Shows normal on inspection. Breath sounds are clear bilaterally, no rales rhonchi wheezes auscultated. HEART: Shows S1, S2 clear. No murmurs auscultated. ABDOMEN: Soft, nontender, nondistended, obese. No palpable organomegaly is noted. No rebound or guarding demonstrated. BACK: Shows spine grossly in the midline. Normal-appearing cervical lordotic curvature. Cervical paraspinous muscles show symmetrical with inspection, palpation some moderate tenderness diffusely in the bilateral superior medial and inferior aspect of the cervical paraspinous muscular also the superior medial trapezius and is without asymmetry. Patient shows good rotation motion cervical spine both laterally as well as full extension full forward flexion with only some moderate tenderness with extension. There is slightly increased thoracic kyphosis, some minor flattening of the lumbar lordotic curvature. EXTREMITIES: Upper extremities show deep tendon reflexes 1+ in the biceps and triceps tendons. Motor exam is 5 on a scale of 5 with right supervisor coffee, biceps and tricep flexion and 5/5 on the left. Peripheral pulses are 1+ radial. No peripheral edema is noted bilaterally. Upper extremities are warm and dry to touch, equal in color and appearance. SKIN: Shows warm and dry, good turgor. No edema. No sores, rashes or bruising throughout. Procedure: Procedure: Options were discussed with the patient. Patient chart reviewed his current m edication regimen updated current review of systems updated today as well. We will proceed with cervical epidural steroid injection today with fluoroscopic guidance. Risks were discussed including but not limited to: Bleeding, infection, possibility of epidural hematoma and subsequent neurological compromise, dural puncture, headaches, spinal cord and/or nerve damage, side effects of steroid medication, and poor results regarding pain control. Patient understands and wished to proceed. Patient return to clinic in approximate 2 weeks for follow-up, was counseled as return appointment, activity level, and side effects beware of. Medication Injected: Med Injected: Procedure cervical epidural steroid injection at the C6-7 level, using local anesthetic under sterile prep and drape using C-arm fluoroscopic guidance under local anesthesia medications injected ;120 mg Depo-Medrol +5 mL normal saline and 2 mL contrast; condition at discharge is stable patient tolerated procedure well. and had no complications Condition at Discharge: Condition at Discharge: Condition at discharge stable, patient tolerated the procedure well and had no complications. FLORENTIN BELLE MD Nov 30, 2020 11:56
--- NOTE | 2020-11-30 11:57 | PDOC4 ---
Procedure Note: ICD 10 Code: ICD 10 Code: M54.12 M 48.02 M50.30 Procedure Note: Patient was consented for cervical epidural steroid injection with fluoroscopic guidance. Risks were discussed including but not limited to: Bleeding, infection, possibility of epidural hematoma and subsequent neurological compromise, dural puncture, headaches, spinal cord and/or nerve damage, side effects of steroid medication, and poor results regarding pain control. Patient understands and wished to proceed. Procedure cervical epidural steroid injection at the C6-7 level, using local anesthetic under sterile prep and drape using C-arm fluoroscopic guidance under local anesthesia medications injected ;120 mg Depo-Medrol +5 mL normal saline and 2 mL contrast; condition at discharge is stable patient tolerated procedure well. and had no complications FLORENTIN BELLE MD Nov 30, 2020 11:57
== END | disposition home or self-care (01) ==
LOC: PNCL 10:53
PROVIDERS: ATTEND Anesthesiology
DX: M50.10 Cervical disc disorder with radiculopathy, unspecified cervical region (principal); M48.02 Spinal stenosis, cervical region; M51.16 Intervertebral disc disorders with radiculopathy, lumbar region; M48.061 Spinal stenosis, lumbar region without neurogenic claudication; I25.10 Atherosclerotic heart disease of native coronary artery without angina pectoris; I10 Essential (primary) hypertension; E78.00 Pure hypercholesterolemia, unspecified; E11.9 Type 2 diabetes mellitus without complications; M19.90 Unspecified osteoarthritis, unspecified site; E03.9 Hypothyroidism, unspecified; K21.9 Gastro-esophageal reflux disease without esophagitis; F41.9 Anxiety disorder, unspecified; Z79.82 Long term (current) use of aspirin; Z79.899 Other long term (current) drug therapy; Z79.84 Long term (current) use of oral hypoglycemic drugs; Z90.49 Acquired absence of other specified parts of digestive tract; Z98.890 Other specified postprocedural states; Z72.89 Other problems related to lifestyle
CPT/HCPCS: 62321; J1030; J1040; Q9965

== ENCOUNTER → 2020-12-15 | Outpatient (CLI) | payer MEDICARE ==
[~2020-12-15] MED LIST changes: -IOHEXOL 180 MG/ML 10 ML VIAL. ONE; -methylPREDNISolone ACETATE 40 MG/ML VIAL. ONE; -methylPREDNISolone ACETATE 80 MG/ML VIAL. ONE
--- NOTE | 2020-12-15 11:27 | RAD ---
CT HEAD AND C-SPINE WO dated 12/15/2020 10:46 AM Indication:Reason: headache neck pain / Spl. Instructions: / History: Comparison: CT head 12/18/2019, CT cervical spine 01/05/2016 Technique: Noncontrast CT images were performed. Sagittal and coronal reconstructions of the cervical spine were obtained. One or more of the following individualized dose reduction techniques were utilized for this examinat ion: 1. Automated exposure control 2. Adjustment of the mA and/or kV according to patient size 3. Use of iterative reconstruction technique Findings: CT head: There is no apparent intracranial mass, hemorrhage or abnormal extra-axial fluid collection. No new area of abnormal density is seen in the brain. Pre-existing low attenuation in the left occip ital lobe appears unchanged. The ventricles and basilar cisterns are normally positioned. There is so me mucosal thickening in the ethmoid air cells. The sinuses and mastoid air cells appear clear. CT cervical spine: There is slight anterior positioning of C5 on C6. Alignment is otherwise normal. T here is no loss of intervertebral body height or prevertebral soft tissue swelling. No fracture line is seen. There is mild disc narrowing at C6-7 and C7-T1. There are some posterior osteophytes at ness ral levels. Evaluation of the soft tissue components of the canal is limited without intrathecal cont rast. No destructive process is seen. IMPRESSION: CT head: No acute abnormality. CT cervical spine: Degenerative changes. No acute abnormality. Electronically signed by: Justin Diaz Jr., MD (12/15/2020 11:25 AM) [facility]
== END ==
LOC: CT 10:38
PROVIDERS: ATTEND Nurse Practitioner
DX: J32.2 Chronic ethmoidal sinusitis (principal); M47.812 Spondylosis without myelopathy or radiculopathy, cervical region; M48.02 Spinal stenosis, cervical region; M25.78 Osteophyte, vertebrae; R51.9 Headache, unspecified
CPT/HCPCS: 70450; 72125

== ENCOUNTER → 2021-03-29 | Outpatient (CLI) | payer MEDICARE ==
[~2021-03-29] MED LIST changes: -BENA40TA3 PO; +BENA40TA74 PO; +BUPIVACAINE MPF 0.25% 10 ML VIAL. ONE; -FLUO10CA15 PO; +FLUO10CA17 PO; +IOHEXOL 180 MG/ML 10 ML VIAL. ONE; +methylPREDNISolone ACETATE 80 MG/ML VIAL. ONE
--- NOTE | 2021-03-29 12:13 | PDOC ---
Progress Note - Pain Clinic Date of Service: DOS: DATE: 03/29/21 TIME: 12:07 Diagnosis: Dx: Right knee joint pain with osteoarthritis Cervical radiculopathy with cervical degenerative disc disease and cervical spinal stenosis Lumbar radiculopathy with lumbar degenerative disease and lumbar spinal stenosis History or Present Illness: HPI: 80-year-old male returns status post cervical epidural steroid injection last seen November 2020 patient did very well about 6% improvement and is currently still improved with the pain in the neck and the shoulders as well as the upper extremities patient's chief complaint today however is right knee joint pain pat ient has "[id number] osteoarthritis" recently treated with a intra-articular injection by his primary physician's office with minimal decrease in pain patient reports significant pain in the knee with standing walking better with sitting or resting but with weightbearing especially putting all of his weight on his right knee such as on a stair or step and with walking has significant pain in the knee medial lateral as well as posteriorly with weightbearing. Patient rates as a 10 on scale 10 is worst least and average 0 with nonweightbearing sitting or resting generally does not awaken him from sleep most nights. Patient reports no loss of motor function but feels very unstable on the leg on his right knee. 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 Physical Exam: VS: Blood pressure is 131/76 pulse 74 respirations 18 temperature 98.5 body Fahrenheit weight is 235 pounds PE: PHYSICAL EXAMINATION: GENERAL: The patient is awake, alert, oriented, appropriate, very pleasant in demeanor HEENT: Shows normocephalic, atraumatic. Extraocular movements are intact and symmetrical. Oral cavity: Mucous membranes moist and pink. NECK: Shows anterior throat supple without palpable lymphadenopathy noted. Swallow reflex symmetrical. CHEST: Shows normal on inspection. Breath sounds are clear bilaterally, no rales or rhonchi auscultated. HEART: Shows S1, S2 clear. No murmurs auscultated. ABDOMEN: Soft, nontender, nondistended. No palpable organomegaly is noted. No rebound or guarding demonstrated. BACK: Shows spine grossly in the midline. Normal-appearing cervical lordotic curvature. Cervical paraspinous muscles show symmetrical inspection, palpation some moderate tenderness diffusely in the inferior aspect cervical paraspinous musculature but without radiation. Patient shows good rotation of motion cervical spine with some mild guarding with extension but not with forward flexion or right and left lateral rotation. There is slightly increased thoracic kyphosis, some minor flattening of the lumbar lordotic curvature. Lumbar paraspinous muscles show symmetrical on inspection, on palpation shows some moderate tenderness diffusely throughout the upper, middle and lower dist ribution of the paraspinous muscles, but without specific trigger points, without radiation of pain. The patient has good rotational motion of the lumbar spine, both laterally as well as extension and flexion without significant difficulty. No tenderness over the spinous processes, sacrum or sacroiliac regions. EXTREMITIES: Lower extremities show deep tendon reflexes 1+ in the patellar and tendo calcaneus tendons. Motor exam is 5 on a scale of 5 with right dorsiflexion, extension, quadriceps and hamstring flexion and 5/5 on the left. Peripheral pulses are 1+ posterior tibial. No peripheral edema is noted bilaterally. Lower extremities are warm and dry to touch, equal in color and appearance. Patient's right knee shows moderate tenderness with palpation over the medial collateral ligament as well as the lateral collateral ligament also posteriorly but without ratcheting without crepitus on joint motion. Upper extremity show deep tendon reflexes 2+ in the bicep tricep tendons motor exam strong with concrete pourer strength rated 5 out of 5 as is bicep tricep flexion. SKIN: Shows warm and dry, good turgor. No edema. No sores, rashes or bruising throughout. Procedure: Procedure: Options were discussed with the patient. Patient's old chart was reviewed as his current medication regimen updated current review of systems updated today as well. We will proceed with a right sided genicular blocks with fluoroscopic guidance. Risk were discussed including but not limited to bleeding infection possibly intravascular injection and sequelae spread of local anesthetic numbness side effects steroid medication exposure to fluoroscopy and portals rating pain control. Patient understands and wishes to proceed. Medication Injected: Med Injected: Patient supine position under sterile prep and drape right knee was identified and using C-arm fluoroscopic guidance in both AP and lateral views using 22- gauge needle x3 for genicular block superior medial and superior lateral genicular nerves and inferior medial genicular nerve. Stylets were removed negative aspiration was confirmed and using 1 cc of contrast at each of the 3 injection sites showed good local spread without washout for all 3. At this time bupivacaine 0.25%(6cc total- 2 cc/site) and total of 80 mg Depo-Medrol. [place] were removed and sterile bandages were applied. Patient tolerated procedure well had no complications. Condition at Discharge: Condition at Discharge: Condition at discharge stable, paced tolerated procedure well and had no complications. FLORENTIN BELLE MD Mar 29, 2021 12:13
--- NOTE | 2021-03-29 12:14 | PDOC4 ---
Procedure Note: ICD 10 Code: ICD 10 Code: M2 5.561 M1 7.11 Procedure Note: Patient consented for right genicular block with fluoroscopic guidance. Risk were discussed including but not limited to bleeding infection possibility of intravascular injection sequelae spread local anesthetic numbness side effects steroid medication exposure fluoroscopy and poor results regarding pain control. Patient understands wished to proceed. Patient supine position under sterile prep and drape right knee was identified and using C-arm fluoroscopic guidance in both AP and lateral views using 22- gauge needle x3 for genicular block superior medial and superior lateral genicular nerves and inferior medial genicular nerve. Stylets were removed negative aspiration was confirmed and using 1 cc of contrast at each of the 3 injection sites showed good local spread without washout for all 3. At this time bupivacaine 0.25%(6cc total- 2 cc/site) and total of 80 mg Depo-Medrol. [place] were removed and sterile bandages were applied. Patient tolerated procedure well had no complications. FLORENTIN BELLE MD Mar 29, 2021 12:14
== END | disposition home or self-care (01) ==
LOC: PNCL 10:53
PROVIDERS: ATTEND Anesthesiology
DX: M17.11 Unilateral primary osteoarthritis, right knee (principal); M50.10 Cervical disc disorder with radiculopathy, unspecified cervical region; M48.02 Spinal stenosis, cervical region; M51.16 Intervertebral disc disorders with radiculopathy, lumbar region; M48.061 Spinal stenosis, lumbar region without neurogenic claudication; I25.10 Atherosclerotic heart disease of native coronary artery without angina pectoris; I10 Essential (primary) hypertension; E78.00 Pure hypercholesterolemia, unspecified; E11.9 Type 2 diabetes mellitus without complications; E03.9 Hypothyroidism, unspecified; N40.0 Benign prostatic hyperplasia without lower urinary tract symptoms; F41.9 Anxiety disorder, unspecified; Z90.49 Acquired absence of other specified parts of digestive tract; Z98.890 Other specified postprocedural states; Z79.899 Other long term (current) drug therapy; Z79.82 Long term (current) use of aspirin; Z72.89 Other problems related to lifestyle
CPT/HCPCS: 64454; J1040; J3490; Q9965

== ENCOUNTER → 2021-04-12 | Outpatient (CLI) | payer MEDICARE ==
[~2021-04-12] MED LIST changes: +DEXAMETHASONE PRES.FREE 10 MG/ML VIAL. ONE; -methylPREDNISolone ACETATE 80 MG/ML VIAL. ONE
--- NOTE | 2021-04-12 11:45 | PDOC ---
Progress Note - Pain Clinic Date of Service: DOS: DATE: 04/12/21 TIME: 11:41 Diagnosis: Dx: Right knee joint pain with osteoarthritis Cervical radiculopathy with cervical degenerative disease and cervical spinal stenosis Lumbar radiculopathy with lumbar degenerative disease lumbar spinal stenosis History or Present Illness: HPI: 80-year-old male returns for follow-up status post right genicular nerve block of the right knee. Patient reports about 80% improvement and is still helping patient reports pain is still in the right knee with standing walking weightbearing with all of his weight on his right leg but much more tolerable with increased activity with greater distance walking doing household activities travel with greater ease and comfort sleeping much better at night patient reports is not awakening from sleep rates the pain however is 8 on scale 10 at all times worst least and is average and is an 8 today. Patient reports is aching in the knee itself with weightbearing mostly in the medial aspect but present throughout the knee patient reports no loss of motor function no bowel or bladder incontinence no significant pain in the left knee, which is status post joint replacement. Physical Exam: VS: Blood pressure is 141/86 pulse 87 respirations 18 temperature 98.2 F height is 5 foot 11 inches weight is 234 pounds. PE: PHYSICAL EXAMINATION: GENERAL: The patient is awake, alert, oriented, appropriate, very pleasant in demeanor HEENT: Shows normocephalic, atraumatic. Extraocular movements are intact and symmetrical. NECK: Shows anterior throat supple without palpable lymphadenopathy noted. Swallow reflex symmetrical. CHEST: Shows normal on inspection. Breath sounds are clear bilaterally. HEART: Shows S1, S2 clear. No murmurs auscultated. ABDOMEN: Soft, nontender, nondistended. No palpable organomegaly is noted. No rebound or guarding demonstrated. BACK: Shows spine grossly in the midline. Normal-appearing cervical lordotic curvature. There is slightly increased thoracic kyphosis, some minor flattening of the lumbar lordotic curvature. Lumbar paraspinous muscles show symmetrical on inspection, on palpation shows some moderate tenderness diffusely throughout the upper, middle and lower distribution of the paraspinous muscles, but without specific trigger points, without radiation of pain. The patient has good rotational motion of the lumbar spine, both laterally as well as extension and flexion without significant difficulty. No tenderness over the spinous p rocesses, sacrum or sacroiliac regions. EXTREMITIES: Lower extremities show deep tendon reflexes to in the patellar and tendo calcaneus tendons. Motor exam is 5 on a scale of 5 with right dorsiflexion, extension, quadriceps and hamstring flexion and 5/5 on the left. Peripheral pulses are 1 posterior tibial. No peripheral edema is noted bilaterally. Right knee shows significant tenderness with palpation over the medial aspect of the medial collateral and medial patella good range of motion passively without ratcheting or crepitus. No tenderness posteriorly with easily palpable 2+ popliteal pulse. Lower extremities are warm and dry, well-healed surgical scar on the left knee. SKIN: Shows warm and dry, good turgor. No edema. No sores, rashes or bruising throughout. Procedure: Procedure: Options were discussed with the patient. Patient chart reviews his current medication regimen updated current review of systems updated today as well. We will proceed with a right genicular nerve block today with superior medial and lateral as well as inferior medial genicular branches with fluoroscopic guidance. Risk were discussed including but not limited to bleeding infection possibility of intravascular injection sequelae spread of local anesthetic and numbness side effects of steroid medication and poor results regarding pain control. Patient understands wishes to proceed. Patient return to clinic in approximately 2 weeks for follow-up, was counseled as to return appointment, activity level, and side effects to be aware of. Medication Injected: Med Injected: Patient supine position under sterile prep and drape right knee was identified and using C-arm fluoroscopic guidance in both AP and lateral views using 22- gauge needle x3 for genicular block superior medial and superior lateral genicular nerves and inferior medial genicular nerve. Stylets were removed negative aspiration was confirmed and using 1 cc of contrast at each of the 3 injection sites showed good local spread without washout for all 3. At this time bupivacaine 0.25%(6cc total- 2 cc/site) and total of 20 mg dexamethasone. [place] were removed and sterile bandages were applied. Patient tolerated procedure well had no complications. Condition at Discharge: Condition at Discharge: Condition at discharge stable, patient tolerated the procedure well and had no complications. FLORENTIN BELLE MD Apr 12, 2021 11:45
--- NOTE | 2021-04-12 11:46 | PDOC4 ---
Procedure Note: ICD 10 Code: ICD 10 Code: M2 5.561 M1 7.11 Procedure Note: Patient was consented for right knee genicular nerve block with fluoroscopic guidance. Risks discussed including but not limited to bleeding infection possibility of intravascular injection sequelae spread of local anesthetic and numbness side effects steroid medication exposure to fluoroscopy and portals regarding pain control. Patient understands wished to proceed. Patient supine position under sterile prep and drape right knee was identified and using C-arm fluoroscopic guidance in both AP and lateral views using 22- gauge needle x3 for genicular block superior medial and superior lateral genicular nerves and inferior medial genicular nerve. Stylets were removed negative aspiration was confirmed and using 1 cc of contrast at each of the 3 i njection sites showed good local spread without washout for all 3. At this time bupivacaine 0.25%(6cc total- 2 cc/site) and total of 20 mg dexamethasone. [place] were removed and sterile bandages were applied. Patient tolerated procedure well had no complications. FLORENTIN BELLE MD Apr 12, 2021 11:46
== END | disposition home or self-care (01) ==
LOC: PNCL 11:04
PROVIDERS: ATTEND Anesthesiology
DX: M17.11 Unilateral primary osteoarthritis, right knee (principal); M50.10 Cervical disc disorder with radiculopathy, unspecified cervical region; M48.02 Spinal stenosis, cervical region; M51.16 Intervertebral disc disorders with radiculopathy, lumbar region; M48.061 Spinal stenosis, lumbar region without neurogenic claudication; I25.10 Atherosclerotic heart disease of native coronary artery without angina pectoris; I10 Essential (primary) hypertension; E78.00 Pure hypercholesterolemia, unspecified; K21.9 Gastro-esophageal reflux disease without esophagitis; N40.0 Benign prostatic hyperplasia without lower urinary tract symptoms; E03.9 Hypothyroidism, unspecified; E11.9 Type 2 diabetes mellitus without complications; F41.9 Anxiety disorder, unspecified; Z79.82 Long term (current) use of aspirin; Z79.84 Long term (current) use of oral hypoglycemic drugs; Z79.899 Other long term (current) drug therapy; Z90.49 Acquired absence of other specified parts of digestive tract; Z98.890 Other specified postprocedural states; Z72.89 Other problems related to lifestyle
CPT/HCPCS: 64454; J1100; J3490; Q9965

== ENCOUNTER → 2021-04-29 | Outpatient (CLI) | payer MEDICARE ==
[~2021-04-29] MED LIST changes: -BUPIVACAINE MPF 0.25% 10 ML VIAL. ONE; -DEXAMETHASONE PRES.FREE 10 MG/ML VIAL. ONE; -IOHEXOL 180 MG/ML 10 ML VIAL. ONE
--- NOTE | 2021-04-30 17:00 | CARD ---
MR#: [id number] Date of Study: 04/29/2021 Ordering Physician: AMADO AGARWAL, Referring Physician: Lyla PINEDO: Tavon Romero [facility] APPROVED REPORT EXAM: Two-dimensional and M-mode echocardiogram with Doppler and color Doppler. INDICATION Hypertension/HCVD RISK FACTORS Hypertension 2D DIMENSIONS Left Atrium(2D)4.3 (1.6-4.0cm)IVSd1.3 (0.7-1.1cm) Aortic Root(2D)3.5 (2.0-3.7cm)LVDd5.0 (3.9-5.9cm) LVOT Diameter2.2 (1.8-2.4cm)PWd1.2 (0.7-1.1cm) LA Hcutdq258 (18-58mL)LVDs2.7 (2.5-4.0cm) FS (%) 44.9 %SV88.6 ml Aortic Valve AoV Peak Mannie.269.9cm/sAoV VTI60.4cm AO Peak GR.29.1mmHgLVOT Peak Mannie.87.1cm/s AO Mean GR.16mmHgAVA (VMAX)1.20cm2 Mitral Valve MV E Ixwtenov19.6cm/sMV E Peak Gr.3mmHg MV DECEL [id number] A Lelrshbr69.5cm/s MV E Mean Gr.1mmHgE/A Ratio1.3 Pulmonary Valve PV Peak Uticwppx06.0cm/s Tricuspid Valve TR P. [id number]/sTR Peak Gr.29mmHg Pulmonary Vein S1 Ksnrzpap67.6cm/sD2 Rzmtxpua24.0cm/s LEFT VENTRICLE The left ventricle is normal size. There is mild concentric left ventricular hypertrophy. The left ve ntricular systolic function is normal and the ejection fraction is within normal range. LV ejection f raction of 55 to 60%. There is normal LV segmental wall motion. Transmitral Doppler flow pattern is G rade II-pseudonormal filling dynamics. No left ventricle thrombus noted on this study. There is no ve ntricular septal defect visualized. There is no left ventricular aneurysm. There is no mass noted in the left ventricle. RIGHT VENTRICLE The right ventricle is normal size. There is normal right ventricular wall thickness. The right ventr icular systolic function is normal. ATRIA The left atrium is mild to moderately dilated. The right atrium size is normal. The interatrial septu m is intact with no evidence for an atrial septal defect or patent foramen ovale as noted on 2-D or D oppler imaging. AORTIC VALVE The aortic valve is calcified and displays decreased opening. Doppler and Color Flow revealed no sign ificant aortic regurgitation. There is trace valvular aortic stenosis. Calculated aortic maximum pres sure gradient of 28 mmHg and mean pressure gradient of 16 mmHg. There is no aortic valvular vegetatio n. MITRAL VALVE The mitral valve is thickened but opens well. There is no evidence of mitral valve prolapse. There is no mitral valve stenosis. Doppler and Color-flow revealed mild mitral regurgitation. TRICUSPID VALVE The tricuspid valve is normal in structure and function. Doppler and Color Flow revealed trace tricus pid regurgitation. There is no tricuspid valve prolapse or vegetation. There is no tricuspid valve st enosis. PULMONIC VALVE The pulmonary valve is normal in structure and function. Doppler and Color Flow revealed no pulmonic valvular regurgitation. There is no pulmonic valvular stenosis. GREAT VESSELS The aortic root is normal in size. The ascending aorta is normal in size. The pulmonary artery is nor mal. The IVC is normal in size and collapses >50% with inspiration. PERICARDIAL EFFUSION There is no pleural effusion. There is no evidence of significant pericardial effusion. Critical Notification Critical Value: No <Conclusion> The left ventricle is normal size. The left ventricular systolic function is normal and the ejection fraction is within normal range. LV ejection fraction of 55 to 60%. There is mild concentric left ventricular hypertrophy. Doppler and Color Flow revealed no significant aortic regurgitation. There is trace valvular aortic stenosis. Calculated aortic maximum pressure gradient of 28 mmHg and mean pressure gradient of 16 mmHg. Doppler and Color-flow revealed mild mitral regurgitation. Doppler and Color Flow revealed trace tricuspid regurgitation. Signed by : Justin Schmidt MD Electronically Approved : 04/30/2021 16:59:52
== END ==
LOC: ECHO 09:23
PROVIDERS: ATTEND Internal Medicine Cardiovascular Disease
DX: I08.0 Rheumatic disorders of both mitral and aortic valves (principal); I10 Essential (primary) hypertension
CPT/HCPCS: 93306; C8929

== ENCOUNTER → 2021-06-14 | Outpatient (CLI) | payer MEDICARE ==
[~2021-06-14] MED LIST changes: +BUPIVACAINE MPF 0.25% 10 ML VIAL. ONE; +DEXAMETHASONE PRES.FREE 10 MG/ML VIAL. ONE; +LIDOCAINE 2% PF 5 ML VIAL. ONE
--- NOTE | 2021-06-14 14:38 | PDOC ---
Progress Note - Pain Clinic Date of Service: DOS: DATE: 06/14/21 TIME: 14:33 Diagnosis: Dx: Cervical radiculopathy with cervical degenerative disease and cervical spinal stenosis Lumbar radiculopathy with lumbar degenerative disease lumbar spinal stenosis Right knee joint pain with osteoarthritis History or Present Illness: HPI: 80-year-old male returns for follow-up status post previous right genicular nerve block x2 with about 80% improvement with each round lasting for about a week or so with the 20 patient reports pain returning on the right knee we discussed radiofrequency ablation if repeated diagnostic blocks were successful and patient reports he did have significant reduction in pain in the right knee after the last visit. Patient reports pain now is returned in the knee with weightbearing standing walking changing position specially putting all his weight on his right leg such as climbing up on a stair a step patient reports is a 9 on scale 10 at all times worst least and average is a 9 today. Patient reports no loss of motor function patient reports no significant pain the base the neck and shoulders as well which is secondary complaint. Patient cries pain is aching sharp severe unbearable at times with weightbearing. Patient reports no new motor or sensory deficits no bowel or bladder incontinence. Physical Exam: VS: Blood pressure is 147/85 pulse 81 respirations 20 temperature 98.3 F height is 5 foot 11 inches weight is 233 pounds. PE: PHYSICAL EXAMINATION: GENERAL: The patient is awake, alert, oriented, appropriate, very pleasant in demeanor HEENT: Shows normocephalic, atraumatic. Extraocular movements are intact and symmetrical. Oral cavity: Mucous membranes moist and pink. NECK: Shows anterior throat supple without palpable lymphadenopathy noted. Swallow reflex symmetrical. CHEST: Shows normal on inspection. Breath sounds are clear bilaterally, coarse but no rales or rhonchi auscultated. HEART: Shows S1, S2 clear. No murmurs auscultated. ABDOMEN: Soft, nontender, nondistended. No palpable organomegaly is noted. BACK: Shows spine grossly in the midline. Normal-appearing cervical lordotic curvature. There is slightly increased thoracic kyphosis, some minor flattening of the lumbar lordotic curvature. Lumbar paraspinous muscles show symmetrical on inspection, on palpation shows some moderate tenderness diffusely throughout the upper, middle and lower distribution of the paraspinous muscles bilaterally and also into the lower thoracic paraspinous musculature, firm and tender, but without specific trigger points, without radiation of pain. The patient has good rotational motion of the lumbar spine, both laterally as well as extension and flexion without significant difficulty. No tenderness over the spinous processes, sacrum or sacroiliac regions. EXTREMITIES: Lower extremities show deep tendon reflexes 1+ in the patellar and tendo calcaneus tendons. Motor exam is 5 on a scale of 5 with right dorsiflexion, extension, quadriceps and hamstring flexion and 5/5 on the left. Peripheral pulses are 1+ posterior tibial. No peripheral edema is noted bilaterally. Lower extremities are warm and dry. Patient's right knee shows significant tenderness with palpation of both inferiorly and laterally in the medial and lateral collateral ligament and the lateral collateral ligament with good range of motion however without crepitus without ratcheting. Left side is nontender. SKIN: Shows warm and dry, good turgor. No edema. No sores, rashes or bruising throughout. Procedure: Procedure: Options were discussed with the patient. Patient's chart was reviewed as his current medication regimen updated current review of systems updated today as well. We will proceed with a right-sided genicular under sterile prep and drape patient in prone position using C-arm fluoroscopic guidance,in the superior medial superior lateral and inferior medial genicular nerve distributions with fluoroscopic guidance. Risk were discussed including but not limited to bleeding infection possibility of intravascular injection sequelae spread local anesthetic numbness side effects steroid medications post arthroscopy potential thermal damage to surrounding structures including permanent ischemic damage as well as poor results regarding pain control. Patient understands wished to proceed. Medication Injected: Med Injected: Patient supine position under sterile prep and drape, right knee was identified and using C-arm fluoroscopic guidance in both AP and lateral views using 22- gauge insulated radiofrequency needles x3 for the right knee, genicular radiofr equency ablation of the superior medial and superior lateral genicular nerves and inferior medial genicular nerves. [place] were placed at the superior medial and superior lateral distribution along the femoral to condylar junction and the tibial condylar junction for the inferior medial genicular nerve. Stylets were removed and negative aspiration was confirmed and radiofrequency probes were placed within each of the 3 needles. At this time sensory testing was carried out up to 3 V with good reproduction of pain in each of the branches superior medial superior lateral and inferior medial genicular nerves individually. At this time motor testing was carried out up to 2 V without motor effect on the lower extremity. At this time probes were temporarily r emoved and 1 cc of lidocaine was injected at each of the 3 sites.Probes were replaced, and radiofrequency ablation was performed. See radiofrequency flowsheet for levels, impedances, temperatures,duration, etc. Following ablation, solution containing 1 cc 0.25% bupivacaine and 20 mg Depo-Medrol was injected at each of the injection sites.(Total of 6 cc 0.25% bupivacaine and 120 mg Depo-Medrol). [place] were removed and sterile bandages were applied. Patient tolerated procedure well and had no complications. Condition at Discharge: Condition at Discharge: Condition at discharge stable, patient tolerated the procedure well and had no complications. FLORENTIN BELLE MD Jun 14, 2021 14:38
--- NOTE | 2021-06-14 14:40 | PDOC4 ---
Procedure Note: ICD 10 Code: ICD 10 Code: M2 5.561 M17.11 Procedure Note: Patient was consented for right-sided genicular radiofrequency ablation with fluoroscopic guidance. Risk were discussed including but not limited to bleeding infection possibility of intravascular injection sequelae spread local anesthetic numbness side effects steroid medication exposure to fluoroscopy, potential thermal damage with permanent ischemic damage as well as poor results regarding pain control. Patient understands wishes to proceed. Patient supine position under sterile prep and drape, right knee was identified and using C-arm fluoroscopic guidance in both AP and lateral views using 22- gauge insulated radiofrequency needles x3 for the right knee, genicular radiofrequency ablation of the superior medial and superior lateral genicular nerves and inferior medial genicular nerves. [place] were placed at the superior medial and superior lateral distribution along the femoral to condylar junction and the tibial condylar junction for the inferior medial genicular nerve. Stylets were removed and negative aspiration was confirmed and radiofrequency probes were placed within each of the 3 needles. At this time sensory testing was carried out up to 3 V with good reproduction of pain in each of the branches superior medial superior lateral and inferior medial genicular nerves individually. At this time motor testing was carried out up to 2 V without motor effect on the lower extremity. At this time probes were temporarily removed and 1 cc of lidocaine was injected at each of the 3 sites.Probes were replaced, and radiofrequency ablation was performed. See radiofrequency flowsheet for levels, impedances, temperatures,duration, etc. Following ablation, solution containing 1 cc 0.25% bupivacaine and 20 mg Depo- Medrol was injected at each of the injection sites.(Total of 6 cc 0.25% bupivacaine and 120 mg Depo-Medrol). [place] were removed and sterile bandages were applied. Patient tolerated procedure well and had no complications. FLORENTIN BELLE MD Jun 14, 2021 14:39
== END ==
LOC: PNCL 13:01
PROVIDERS: ATTEND Anesthesiology
DX: M17.11 Unilateral primary osteoarthritis, right knee (principal); M50.10 Cervical disc disorder with radiculopathy, unspecified cervical region; M51.16 Intervertebral disc disorders with radiculopathy, lumbar region; M48.02 Spinal stenosis, cervical region; M48.061 Spinal stenosis, lumbar region without neurogenic claudication; I25.10 Atherosclerotic heart disease of native coronary artery without angina pectoris; I10 Essential (primary) hypertension; E78.00 Pure hypercholesterolemia, unspecified; K21.9 Gastro-esophageal reflux disease without esophagitis; N40.0 Benign prostatic hyperplasia without lower urinary tract symptoms; E11.9 Type 2 diabetes mellitus without complications; E03.9 Hypothyroidism, unspecified; F41.9 Anxiety disorder, unspecified; Z90.49 Acquired absence of other specified parts of digestive tract; Z98.890 Other specified postprocedural states; Z79.82 Long term (current) use of aspirin; Z79.899 Other long term (current) drug therapy; Z72.89 Other problems related to lifestyle
CPT/HCPCS: 64624; J1100; J3490

== ENCOUNTER → 2021-06-28 | Outpatient (CLI) | payer MEDICARE ==
[~2021-06-28] MED LIST changes: -BUPIVACAINE MPF 0.25% 10 ML VIAL. ONE; -DEXAMETHASONE PRES.FREE 10 MG/ML VIAL. ONE; -LIDOCAINE 2% PF 5 ML VIAL. ONE
--- NOTE | 2021-06-28 13:47 | PDOC ---
Progress Note - Pain Clinic Date of Service: DOS: DATE: 06/28/21 TIME: 13:42 Diagnosis: Dx: Cervical radiculopathy with cervical degenerative disease and cervical spinal stenosis Lumbar to colopathy with lumbar degenerative disease and lumbar spinal stenosis Right knee joint pain with osteoarthritis History or Present Illness: HPI: 80-year-old male returns for follow-up status post a right genicular nerve radiofrequency ablation June 14, 2021. Patient reports did very well with that with a -80% improvement initially now still some pain in the knee but about 40% improved overall patient reports his ability to bend and stoop and and use the right knee is significantly improved and function still some pain in the knee but the function is doing much better with kneeling and putting all his weight on his right leg. 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 Patient reports no loss of motor function but significant fatigability with the right arm. Patient rates his pain as an 8 on scale 10 at all times average worst and least with regard to his right arm and shoulder and is an 8 today patient scribes aching and sharp dull tight shooting can be severe and constant as well. Physical Exam: VS: Blood pressure is 135/77 pulse 74 respirations 18 temperature is 98.8 F weight is 235 pounds. PE: PHYSICAL EXAMINATION: GENERAL: The patient is awake, alert, oriented, appropriate, very pleasant in demeanor HEENT: Shows normocephalic, atraumatic. Extraocular movements are intact and symmetrical. Oral cavity: Mucous membranes moist and pink. NECK: Shows anterior throat supple without palpable lymphadenopathy noted. Swallow reflex symmetrical. CHEST: Shows normal on inspection. Breath sounds are clear bilaterally. HEART: Shows S1, S2 clear. No murmurs auscultated. ABDOMEN: Soft, nontender, nondistended. No palpable organomegaly is noted. No rebound or guarding demonstrated. BACK: Shows spine grossly in the midline. Normal-appearing cervical lordotic curvature. Cervical paraspinous muscles show symmetrical inspection, on palpation some moderate tenderness diffusely in the middle and lower distribution of the cervical paraspinous musculature more on the right than the left also in the superior medial trapezius on the right. No trigger points no radiation is demonstrated patient shows good rotation motion cervical spine both laterally as well as extension flexion without significant difficulty. There is slightly increased thoracic kyphosis, some minor flattening of the lumbar lordotic curvature. EXTREMITIES: Upper extremities show deep tendon reflexes to in the biceps and triceps tendons. 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 Peripheral pulses are 2+ radial. No peripheral edema is noted bilaterally. Upper extremities are warm and dry to touch, equal in color and appearance. SKIN: Shows warm and dry, good turgor. No edema. No sores, rashes or bruising throughout. Procedure: Procedure: Options were discussed with the patient. Patient's old chart was reviewed his his current medication regimen updated current review of systems updated today as well. We will proceed with a cervical epidural steroid injection today with fluoroscopic guidance. Risks were discussed including but not limited to: Bleeding, infection, possibility of epidural hematoma and subsequent neurological compromise, dural puncture, headaches, spinal cord and/or nerve damage, side effects of steroid medication, and poor results regarding pain control. Patient understands and wished to proceed. Patient will return to clinic in approximately 2 weeks for follow-up, was counseled as to return appointment, activity level, side effects to be aware of. Medication Injected: Med Injected: Procedure cervical epidural steroid injection at the C6-7 level, using local anesthetic under sterile prep and drape using C-arm fluoroscopic guidance under local anesthesia medications injected ; 20 mg dexamethasone +5 mL normal saline and 2 mL contrast; condition at discharge is stable patient tolerated procedure well. and had no complications Condition at Discharge: Condition at Discharge: Condition at discharge is stable, patient Lupe the procedure well and no complications. FLORENTIN BELLE MD June 28, 2021 13:47
--- NOTE | 2021-06-28 13:47 | PDOC4 ---
Procedure Note: ICD 10 Code: ICD 10 Code: M54.12 M50.30 M48.02 Procedure Note: Patient was consented for cervical epidural steroid injection with fluoroscopic guidance. Risks were discussed including but not limited to: Bleeding, infection, possibility of epidural hematoma and subsequent neurological compromise, dural puncture, headaches, spinal cord and/or nerve damage, side effects of steroid medication, and poor results regarding pain control. Patient understands and wished to proceed. Procedure cervical epidural steroid injection at the C6-7 level, using local a nesthetic under sterile prep and drape using C-arm fluoroscopic guidance under local anesthesia medications injected ; 20 mg dexamethasone +5 mL normal saline and 2 mL contrast; condition at discharge is stable patient tolerated procedure well. and had no complications FLORENTIN BELLE MD June 28, 2021 13:47
== END | disposition home or self-care (01) ==
LOC: PNCL 13:04
PROVIDERS: ATTEND Anesthesiology
DX: M50.10 Cervical disc disorder with radiculopathy, unspecified cervical region (principal); M48.02 Spinal stenosis, cervical region; M54.12 Radiculopathy, cervical region; M48.061 Spinal stenosis, lumbar region without neurogenic claudication; M51.16 Intervertebral disc disorders with radiculopathy, lumbar region; M17.11 Unilateral primary osteoarthritis, right knee; I25.10 Atherosclerotic heart disease of native coronary artery without angina pectoris; I10 Essential (primary) hypertension; E78.00 Pure hypercholesterolemia, unspecified; E11.9 Type 2 diabetes mellitus without complications; E03.9 Hypothyroidism, unspecified; K21.9 Gastro-esophageal reflux disease without esophagitis; F41.9 Anxiety disorder, unspecified; Z79.82 Long term (current) use of aspirin; Z79.899 Other long term (current) drug therapy; Z98.890 Other specified postprocedural states; Z72.89 Other problems related to lifestyle
CPT/HCPCS: 62321